=== PATIENT | female | born 1950 | race Caucasian/White ===

== ENCOUNTER 2016-06-08 02:11 | Inpatient (IN) | payer MEDICARE ==
[~2016-06-08] VITALS: Ht 170.2 cm; Wt 72.0 kg
[~2016-06-08 02:11] MED LIST: ADVI200T16; CALC500 PO; CENTTAB9 PO; FAMO20 PO; HYDR-3533 PO; LEXA10TA PO; LOPE2 PO; MELA3TAB14; TUMS500C CHEW
[2016-06-08 02:13] VITALS: BP 144/80; PULSE 108; RESP 18; TEMP 98.7; O2SAT 99
[2016-06-08] MEDS ORDERED: ADVI200C PO (02:25)
[2016-06-08] MEDS ORDERED: MELA1TAB18 PO (02:25)
[2016-06-08] MEDS ORDERED: ESCI20TA PO (02:25)
[2016-06-08] MEDS ORDERED: OSCA200T PO (02:25)
[2016-06-08] MEDS ORDERED: LORazepam 2 MG/ML VIAL IVS ONE (02:45)
[2016-06-08] MEDS ORDERED: SODIUM CHLORIDE 0.9% FLUSH 10 ML FLUSH IVF PRN (02:45)
[2016-06-08] MEDS ORDERED: SODIUM CHLOR 0.9% 1000 ML INJ 1,000 ML IV ONE (02:45)
[2016-06-08 02:53] VITALS: RESP 18; O2SAT 98
[2016-06-08 02:59] LABS: AUTOMATED NEUTROPHIL # 6.1 TH/MM3 (1.8-7.7); BASOPHIL % 0.6 % (0.0-2.0); EOSINOPHIL % 0.4 % (0.0-4.0); HEMATOCRIT 37.2 % (35.0-46.0); HEMO FLAGS DIFF FINAL; LYMPH % 10.2 % (9.0-44.0); LYMPHOCYTE # 0.8 TH/MM3 (1.0-4.8); MEAN CELL VOLUME 93.5 FL (80.0-100.0); MEAN CORPUSCULAR HEMOGLOBIN 31.9 PG (27.0-34.0); MEAN CORPUSCULAR HGB CONC 34.1 % (32.0-36.0); MONO % 7.7 % (0.0-8.0); NEUT % 81.1 % (16.0-70.0); PLATELET COUNT 221 TH/MM3 (150-450); RED BLOOD COUNT 3.98 MIL/MM3 (4.00-5.30); RED CELL DISTRIBUTION WIDTH 13.5 % (11.6-17.2); WHITE BLOOD COUNT 7.5 TH/MM3 (4.0-11.0)
[2016-06-08 03:32] LABS: AMPHETAMINE, URINE NEG (NEG); BARBITURATES, URINE NEG (NEG); COCAINE, URINE NEG (NEG)
--- NOTE | 2016-06-08 03:34 | PD ---
HPI Chief Complaint: Seizure Time Seen by Provider: 02:27 Travel History International Travel<30 days: No Contact w/Intl Traveler<30days: No Traveled to known affect area: No History of Present Illness HPI 65-year-old female brought in by ambulance from home after apparent seizure- like activity. According to the who witnessed the event, the patient was staring off in the distance, then had general shaking, then was talking and not making any sense. When EMS arrived the patient was very combative and appeared to be postictal. Upon arrival to the emergency department the patient is more cooperative. She is denying any physical complaints. No fevers, chills , cough, or recent illness. No history of seizure disorder. She is being evaluated by a neurologist for insomnia/poor sleep. She admits to drinking about 10-12 beers per day, however the last 2 days she only had 1 beer daily because she is trying to cut back. PFSH Past Medical History Hx Anticoagulant Therapy: Yes (ASPRIN ) Past Surgical History Hysterectomy: Yes Joint Replacement: Yes (HIP REPLACEMENT. AND SHOULDER ) Other Surgery: Yes (LUMPECTOMY ) Social History Alcohol Use: Yes (2-3 BEERS A DAY ) Tobacco Use: No Substance Use: No Allergies-Medications (Allergen,Severity, Reaction): Coded Allergies: Benja (Verified Allergy, Unknown, 09/17/15) Reported Meds & Prescriptions Reported Meds & Active Scripts Active Reported Melatonin 10 Mg Tab 10 Mg PO HS PRN Advil Pm (Ibuprofen-Diphenhydramine) 200-25 Mg Cap 1 Cap PO HS PRN Oscal 500/200 D-3 (Calcium Carbonate-Vitamin D) 500-200 Mg-Unit Tab 1 Tab PO BID Escitalopram (Escitalopram Oxalate) 20 Mg Tab 20 Mg PO DAILY Review of Systems Except as stated in HPI: all other systems reviewed are Neg Physical Exam Narrative GENERAL: Well-developed, well-nourished, awake, alert, no acute distress. Slightly tremulous. SKIN: Focused skin assessment warm/dry. No rash. No lacerations, abrasions, or ecchymosis. HEAD: Atraumatic. Normocephalic. EYES: Pupils equal and round. No scleral icterus. No injection or drainage. ENT: Mucous membranes pink and moist. NECK: Trachea midline. No JVD. No nuchal rigidity. CARDIOVASCULAR: Tachycardic, rate 105, regular. No murmur appreciated. RESPIRATORY: No accessory muscle use. Clear to auscultation. Breath sounds equal bilaterally. GASTROINTESTINAL: Abdomen soft, non-tender, nondistended. MUSCULOSKELETAL: No obvious deformities. No clubbing. No cyanosis. No edema. NEUROLOGICAL: Awake and alert. No obvious cranial nerve deficits. Motor grossly within normal limits. Normal speech. PSYCHIATRIC: Flat affect. Poor eye contact. Data Data Last Documented VS Vital Signs Date Time Temp Pulse Resp B/P Pulse Ox O2 Delivery O2 Flow Rate FiO2 06/08/16 02:53 18 98 06/08/16 02:15 Room Air 06/08/16 02:13 98.7 108 144/80 Orders Complete Blood Count With Diff (06/08/16 02:32) Alcohol (Ethanol) (06/08/16 02:32) Drug Screen, Random Urine (06/08/16 02:32) Electrocardiogram (06/08/16 ) Blood Glucose (06/08/16 02:32) Ecg Monitoring (06/08/16 02:32) Iv Access Insert/Monitor (06/08/16 02:32) Oximetry (06/08/16 02:32) Comprehensive Metabolic Panel (06/08/16 02:32) Sodium Chloride 0.9% Flush (Ns Flush) (06/08/16 02:45) Lorazepam Inj (Ativan Inj) (06/08/16 02:45) Ct Brain W/O Iv Contrast(Rout) (06/08/16 ) Sodium Chlor 0.9% 1000 Ml Inj (Ns 1000 M (06/08/16 02:45) Potassium Chloride (Kcl) (06/08/16 04:15) ^ Seizure Precautions (06/08/16 05:35) Admit To Inpatient (06/08/16 ) Vital Signs (Adult) Q4H (06/08/16 05:35) Bedside Glucose DOTTIE.AC&HS (06/08/16 05:35) Intake + Output DOTTIE.QSHIFT (06/08/16 05:35) Alcohol Withdrawal Asmt-Ciwa Q4HX18 (06/08/16 05:35) ^ Seizure Precautions (06/08/16 05:35) Multivitamin Inj (Mvi-12 Inj)... (06/08/16 05:45) Thiamine Inj (Thiamine Inj) (06/08/16 05:45) Thiamine (Vit B1) (Vitamin B1) (06/11/16 09:00) Consult Cm-Etoh Abuse Dc Plan (06/08/16 ) Flumazenil Inj (Romazicon Inj) (06/08/16 05:45) Lorazepam (Ativan) (06/08/16 05:45) Lorazepam Inj (Ativan Inj) (06/08/16 05:45) Lorazepam (Ativan) (06/08/16 05:45) Lorazepam Inj (Ativan Inj) (06/08/16 05:45) Lorazepam Inj (Ativan Inj) (06/08/16 05:45) Lorazepam Inj (Ativan Inj) (06/08/16 05:45) Haloperidol Inj (Haldol Inj) (06/08/16 05:45) Inpatient Certification (06/08/16 ) Vital Signs (Adult) Q4H (06/08/16 05:35) Activity Oob With Assistance (06/08/16 05:35) Manifold Operator / Telemetry .CONTINUOUS (06/08/16 05:35) Intake + Output DOTTIE.QSHIFT (06/08/16 05:35) Diet Regular Basic (06/08/16 Breakfast) Sodium Chloride 0.9% Flush (Ns Flush) (06/08/16 05:45) Sodium Chloride 0.9% Flush (Ns Flush) (06/08/16 09:00) Ondansetron Inj (Zofran Inj) (06/08/16 05:45) Bisacodyl Supp (Dulcolax Supp) (06/08/16 05:45) Comprehensive Metabolic Panel (06/09/16 06:00) Complete Blood Count With Diff (06/09/16 06:00) Scd Bilateral/Knee High DOTTIE.BID (06/08/16 05:35) Pawel Bilateral/Knee High DOTTIE.QSHIFT (06/08/16 05:35) Acetaminophen (Tylenol) (06/08/16 05:45) Labs Laboratory Tests Test 06/08/16 06/08/16 02:45 02:50 White Blood Count 7.5 TH/MM3 Red Blood Count 3.98 MIL/MM3 Hemoglobin 12.7 GM/DL Hematocrit 37.2 % Mean Corpuscular Volume 93.5 FL Mean Corpuscular Hemoglobin 31.9 PG Mean Corpuscular Hemoglobin 34.1 % Concent Red Cell Distribution Width 13.5 % Platelet Count 221 TH/MM3 Mean Platelet Volume 7.6 FL Neutrophils (%) (Auto) 81.1 % Lymphocytes (%) (Auto) 10.2 % Monocytes (%) (Auto) 7.7 % Eosinophils (%) (Auto) 0.4 % Basophils (%) (Auto) 0.6 % Neutrophils # (Auto) 6.1 TH/MM3 Lymphocytes # (Auto) 0.8 TH/MM3 Monocytes # (Auto) 0.6 TH/MM3 Eosinophils # (Auto) 0.0 TH/MM3 Basophils # (Auto) 0.0 TH/MM3 CBC Comment DIFF FINAL Differential Comment Sodium Level 130 MEQ/L Potassium Level 3.1 MEQ/L Chloride Level 94 MEQ/L Carbon Dioxide Level 23.3 MEQ/L Anion Gap 13 MEQ/L Blood Urea Nitrogen 8 MG/DL Creatinine 0.96 MG/DL Estimat Glomerular Filtration 58 ML/MIN Rate Random Glucose 186 MG/DL Calcium Level 8.6 MG/DL Total Bilirubin 0.7 MG/DL Aspartate Amino Transf 119 U/L (AST/SGOT) Alanine Aminotransferase 57 U/L (ALT/SGPT) Alkaline Phosphatase 102 U/L Total Protein 7.0 GM/DL Albumin 3.6 GM/DL Ethyl Alcohol Level LESS THAN 3 MG/DL Urine Opiates Screen NEG Urine Barbiturates Screen NEG Urine Amphetamines Screen NEG Urine Benzodiazepines Screen NEG Urine Cocaine Screen NEG Urine Cannabinoids Screen NEG MDM Medical Decision Making Medical Screen Exam Complete: Yes Emergency Medical Condition: Yes Differential Diagnosis Seizure, alcohol withdrawal seizure, metabolic abnormality, intracranial abnormality Narrative Course Initial vital signs show heart rate 108, blood pressure 144/80, pulse ox 99% on room air, oral temp of 98.7F. CBC is unremarkable. CMP is remarkable for sodium 1:30, potassium 3.1, chloride 94, random glucose 186, AST 119, ALT 57. Urine drug screen is negative. Alcohol level is negative. CT head shows no evidence of acute intracranial pathology. No masses are identified. The patient was given a dose of Ativan and is no longer tremulous. She has no history of seizures. Sounds like she may have had an alcohol withdrawal seizure. The patient drinks a significant amount of beer daily drinking between 10-12 beers daily, however. Last 2 days has only drank one beer a day in an attempt to quit drinking. She'll be admitted for further treatment and evaluation. Case discussed with hospitalist Dr. Gaitan who will admit the patient to her service. Diagnosis Primary Impression: Alcohol withdrawal seizure Qualified Code: F10.230 - Alcohol withdrawal seizure, uncomplicated Admitting Information Admitting Physician Requests: Admit Kenyon Astorga MD Jun 08, 2016 03:34
[2016-06-08 03:42] LABS: ALKALINE PHOSPHATASE 102 U/L (45-117); TOTAL BILIRUBIN ADULT 0.7 MG/DL (0.2-1.0)
[2016-06-08 03:50] LABS: ALT (GPT) 57 U/L (10-53); ANION GAP 13 MEQ/L (5-15); AST (GOT) 119 U/L (15-37); BICARBONATE 23.3 MEQ/L (21.0-32.0); BLOOD UREA NITROGEN 8 MG/DL (7-18); CHLORIDE 94 MEQ/L (98-107); GLOMERULAR FILTRATION RATE 58 ML/MIN (>89); POTASSIUM 3.1 MEQ/L (3.5-5.1); SODIUM (NA) 130 MEQ/L (136-145)
[2016-06-08] MEDS ORDERED: POTASSIUM CHLORIDE 20 MEQ CONTROLLED RELEASE TAB PO ONE (04:15)
--- NOTE | 2016-06-08 04:41 | RADRPT ---
EXAM DATE/TIME: 06/08/2016 03:40 [facility] COMPARISON: CT BRAIN W/O CONTRAST, September 17, 2015, 17:54. INDICATIONS : Altered mental status. Seizure today. RADIATION DOSE: 38.79 CTDIvol (mGy) MEDICAL HISTORY : Seizures. SURGICAL HISTORY : Hysterectomy. Lumpectomy. ENCOUNTER: Initial ACUITY: 1 day PAIN SCALE: 0/10 LOCATION: cranial TECHNIQUE: Multiple contiguous axial images were obtained of the head. Using automated exposure control and adj ustment of the mA and/or kV according to patient size, radiation dose was kept as low as reasonably a chievable to obtain optimal diagnostic quality images. FINDINGS: CEREBRUM: The ventricles are normal for age. No evidence of midline shift, mass lesion, hemorrhage or acute in farction. No extra-axial fluid collections are seen. POSTERIOR FOSSA: The cerebellum and brainstem are intact. The 4th ventricle is midline. The cerebellopontine angle i s unremarkable. EXTRACRANIAL: The visualized portion of the orbits is intact. SKULL: The calvaria is intact. No evidence of skull fracture. CONCLUSION: 1. No evidence of acute intracranial pathology. No masses are identified. Xu Ryan MD on June 08, 2016 at 4:39 Board Certified Radiologist. This report was verified electronically.
[2016-06-08] MEDS ORDERED: LORazepam 2 MG/ML VIAL IV PUSH PRN ×4 (05:45)
[2016-06-08] MEDS ORDERED: HALOPERIDOL LACTATE 5 MG/ML AMP IM PRN (05:45)
[2016-06-08] MEDS ORDERED: SODIUM CHLORIDE 0.9% FLUSH 10 ML FLUSH IV FLUSH PRN (05:45)
[2016-06-08] MEDS ORDERED: FLUMAZENIL 0.5 MG/5 ML VIAL IV PUSH PRN (05:45)
[2016-06-08] MEDS ORDERED: ACETAMINOPHEN 325 MG TAB PO PRN (05:45)
[2016-06-08] MEDS ORDERED: ONDANSETRON HCL 4 MG/2 ML VIAL IVP PRN (05:45)
[2016-06-08] MEDS ORDERED: BISACODYL 10 MG SUPP RECTAL PRN (05:45)
[2016-06-08] MEDS ORDERED: LORazepam 2 MG TAB PO PRN (05:45)
[2016-06-08] MEDS ORDERED: LORazepam 1 MG TAB PO PRN (05:45)
[2016-06-08 08:36] VITALS: BP_SYST 157; BP_SYST 85; BP_DIAS 56; BP_DIAS 98; PULSE 112; PULSE 89; RESP 20; TEMP 97.7; TEMP 98; O2SAT 95
[2016-06-08] MEDS: THIAMINE INJ 100 MG in SODIUM CHLORIDE 0.9% INJ 100 ML IV SCH (10:16)
[2016-06-08] MEDS: MULTIVITAMIN INJ 10 ML, FOLIC ACID INJ 1 MG in SODIUM CHLORID 0.9% 500 ML INJ 500 ML IV SCH (10:16)
[2016-06-08] MEDS: SODIUM CHLORIDE 0.9% FLUSH 10 ML FLUSH IV FLUSH SCH ×2 (10:17→22:36)
--- NOTE | 2016-06-08 12:13 | PD.CONS ---
History of Present Illness Service Neurology Consult Requested By med/er Reason for Consult sz Primary Care Physician Jonny Honeycutt M.D. History of Present Illness 65-year-old female brought in by ambulance from home after apparent seizure- like activity. Normal day for her, in the evening she became confused and started shaking; showed me a couple of small bruises on her legs from incident. spouse not available at present. Left message on phone. PT does not remember what happened. When EMS arrived the patient was very combative and appeared to be postictal. Upon arrival to the emergency department the patient is more cooperative. She is denying any physical complaints. No fevers, chills, cough , or recent illness. she states she has 3-4 etoh drinks and denies any abrupt cessation to me this am. has had recurrent spells ongoing over past year and memory changes. PFSH Past Medical History Hx Anticoagulant Therapy: Yes (ASPRIN ) Past Surgical History Hysterectomy: Yes Joint Replacement: Yes (HIP REPLACEMENT. AND SHOULDER ) Other Surgery: Yes (LUMPECTOMY ) Social History Alcohol Use: Yes (2-3 BEERS A DAY ) Tobacco Use: No Substance Use: No Allergies-Medications (Allergen,Severity, Reaction): Coded Allergies: Benja (Verified Allergy, Unknown, 09/17/15) Reported Meds & Prescriptions Reported Meds & Active Scripts Active Reported Melatonin 10 Mg Tab 10 Mg PO HS PRN Advil Pm (Ibuprofen-Diphenhydramine) 200-25 Mg Cap 1 Cap PO HS PRN Oscal 500/200 D-3 (Calcium Carbonate-Vitamin D) 500-200 Mg-Unit Tab 1 Tab PO BID Escitalopram (Escitalopram Oxalate) 20 Mg Tab 20 Mg PO DAILY Review of Systems Except as stated in HPI: all other systems reviewed are Neg Review of Systems All other ROS: ROS reviewed as documented in chart Past Family Social History Allergies: Coded Allergies: Benja (Verified Allergy, Unknown, 09/17/15) Active Ordered Medications Current Medications Medications (Trade) Dose Ordered Sig/Sterling Route Start Time Stop Time Status Last Admin Multivitamins 10 ml/Folic Acid 1 mg/Sodium Chloride 510.2 ml @ 125 mls/hr Q24H IV 06/08/16 08:00 06/13/16 07:59 06/08/16 10:16 (Thiamine Inj/NS Inj) 101 ml @ 100 mls/hr Q24H IV 06/08/16 09:00 06/11/16 08:59 06/08/16 10:16 (Vitamin B1) 100 mg DAILY PO 06/11/16 09:00 (Romazicon Inj) 0.2 mg Q1M PRN IV PUSH 06/08/16 05:45 (Ativan) 1 mg Q4H PRN PO 06/08/16 05:45 (Ativan Inj) 1 mg Q4H PRN IV PUSH 06/08/16 05:45 (Ativan) 2 mg Q2H PRN PO 06/08/16 05:45 (Ativan Inj) 2 mg Q2H PRN IV PUSH 06/08/16 05:45 (Ativan Inj) 2 mg Q1H PRN IV PUSH 06/08/16 05:45 (Ativan Inj) 2 mg Q15M PRN IV PUSH 06/08/16 05:45 (Haldol Inj) 2 mg Q15M PRN IM 06/08/16 05:45 (NS Flush) 2 ml UNSCH PRN IV FLUSH 06/08/16 05:45 (NS Flush) 2 ml BID IV FLUSH 06/08/16 09:00 06/08/16 10:17 (Zofran Inj) 4 mg Q6H PRN IVP 06/08/16 05:45 (Dulcolax Supp) 10 mg DAILY PRN RECTAL 06/08/16 05:45 (Tylenol) 650 mg Q6H PRN PO 06/08/16 05:45 (Lexapro) 20 mg DAILY PO 06/09/16 09:00 Exam I&O / VS Vital Signs Date Time Temp Pulse Resp B/P Pulse Ox O2 Delivery O2 Flow Rate FiO2 06/08/16 08:36 97.7 89 20 157/98 95 06/08/16 02:53 18 98 06/08/16 02:15 98 Room Air 06/08/16 02:13 98.7 108 18 144/80 99 General: Alert and Oriented, No acute distress Respiratory: Non-labored respirations Cardiology: Normal rate Musculoskeletal: ROM Neurologic: Alert, Oriented, Normal sensory, Normal motor, No focal defects, CN II-XII intact, Gag reflex normal, Normal DTR's Psychiatric: Cooperative, Appropriate mood & affect, Normal judgement, Non- suicidal Review/Management Diagnosis/Plan: (1) Seizure cerebral Plan: unclear if 2/2 etoh cessation; she denies this has had spells before that were not associated with etoh withdrawal frm what i recollect recs eeg mri/mra brain will start keppra for now; i can't remember if we started her on sz meds in the office; spouse not aa limiting/abstaining from etoh d/w pt d/c planning in am no driving/climbing heights/operating dangerous materials (2) ETOHism (3) Insomnia Problem Qualifiers (1) Insomnia: Qualified Code: G47.00 - Insomnia, unspecified type Adarsh Ortega MD Jun 08, 2016 12:13
[2016-06-08 12:35] VITALS: BP 155/74; PULSE 77; RESP 20; TEMP 96.8; O2SAT 94
--- NOTE | 2016-06-08 13:41 | HHI.HP ---
[facility] Jonny Honeycutt M.D. Admission Diagnosis alcohol withdrawal seizure, hypokalemia Diagnoses: Chief Complaint: seizure Travel History International Travel<30 Days: No Contact w/Intl Traveler <30 Da: No Traveled to Known Affected Are: No History of Present Illness 65-year-old female with history of anxiety and alcohol abuse presents via EVAC with seizure activity on 06/07/16. The patient does not recall all the events leading up to her admission. She states she normally drinks 2-4 beers a day, sometimes up to 8-10 beers/day however has been trying to cut back and only drank 2 beers/day over the past 2 days. She states she's cutting back because she was getting worried about her weight gain and also her has been wanting her to quit. Per ER report, the patient's noticed her to be staring off into the distance, speaking but not making any sense, then had generalized shaking and flailing in bed. The called 911 and upon EMS arrival, the patient was noted to be very combative and postictal. She did bite the left side of her tongue, but denies any urinary/bowel incontinence. Denies any recent headache, neck pain, fevers/chills, cough, chest pain, palpitations or shortness of breath. She did have some nausea and vomiting 2 nights ago but denies any abdominal pain or diarrhea. The patient has been seeing neurologist Dr. Ortega as outpatient for insomnia. The patient reports multiple recent falls and seizures. She states she's probably had 5 seizure episodes her entire life, last episode 1 year ago. She also reports recent multiple falls where she just all of a sudden loses her balance, most recently in Feb and April of this year. She is now seen after being admitted to the hospital, she reports some tremors but no further seizure activity. She is interested in complete alcohol cessation but states she does like the taste of beer so she may be able to only drink nonalcoholic beer. She has a very supportive who wants her to quit. She has no other medical complaints at this time. Review of Systems Except as stated in HPI: all other systems reviewed are Neg Past Family Social History Past Medical History Insomnia Anxiety Past Surgical History Hysterectomy Bilateral total hip arthroplasty Right shoulder replacement Lumpectomy Cataract surgery Reported Medications Melatonin 10 Mg Tab 10 Mg PO HS PRN Advil Pm (Ibuprofen-Diphenhydramine) 200-25 Mg Cap 1 Cap PO HS PRN Oscal 500/200 D-3 (Calcium Carbonate-Vitamin D) 500-200 Mg-Unit Tab 1 Tab PO BID Escitalopram (Escitalopram Oxalate) 20 Mg Tab 20 Mg PO DAILY Allergies: Coded Allergies: Benja (Verified Allergy, Unknown, 09/17/15) Active Ordered Medications Current Medications Medications (Trade) Dose Ordered Sig/Sterling Route Start Time Stop Time Status Last Admin Multivitamins 10 ml/Folic Acid 1 mg/Sodium Chloride 510.2 ml @ 125 mls/hr Q24H IV 06/08/16 08:00 06/13/16 07:59 06/08/16 10:16 (Thiamine Inj/NS Inj) 101 ml @ 100 mls/hr Q24H IV 06/08/16 09:00 06/11/16 08:59 06/08/16 10:16 (Vitamin B1) 100 mg DAILY PO 06/11/16 09:00 (Romazicon Inj) 0.2 mg Q1M PRN IV PUSH 06/08/16 05:45 (Ativan) 1 mg Q4H PRN PO 06/08/16 05:45 (Ativan Inj) 1 mg Q4H PRN IV PUSH 06/08/16 05:45 (Ativan) 2 mg Q2H PRN PO 06/08/16 05:45 (Ativan Inj) 2 mg Q2H PRN IV PUSH 06/08/16 05:45 (Ativan Inj) 2 mg Q1H PRN IV PUSH 06/08/16 05:45 (Ativan Inj) 2 mg Q15M PRN IV PUSH 06/08/16 05:45 (Haldol Inj) 2 mg Q15M PRN IM 06/08/16 05:45 (NS Flush) 2 ml UNSCH PRN IV FLUSH 06/08/16 05:45 (NS Flush) 2 ml BID IV FLUSH 06/08/16 09:00 06/08/16 10:17 (Zofran Inj) 4 mg Q6H PRN IVP 06/08/16 05:45 (Dulcolax Supp) 10 mg DAILY PRN RECTAL 06/08/16 05:45 (Tylenol) 650 mg Q6H PRN PO 06/08/16 05:45 (Lexapro) 20 mg DAILY PO 06/09/16 09:00 Family History Mother with history of seizures Denies any family history of brain masses/cancer Social History Very remote tobacco use many years ago, none recent Drinks alcohol, normally anywhere from 2-10 beers/day, now cut back to 2 beers/ day Denies any illicit drug use Lives with her Physical Exam Vital Signs Vital Signs Date Time Temp Pulse Resp B/P Pulse Ox O2 Delivery O2 Flow Rate FiO2 06/08/16 12:35 96.8 77 20 155/74 94 06/08/16 08:36 97.7 89 20 157/98 95 06/08/16 02:53 18 98 06/08/16 02:15 98 Room Air 06/08/16 02:13 98.7 108 18 144/80 99 Physical Exam GENERAL: Well-developed, well-nourished middle aged female patient in [facility]. Mildly tremulous. SKIN: Warm and dry. HEAD: Atraumatic. Normocephalic. EYES: Pupils equal and round. No scleral icterus. No injection or drainage. ENT: No nasal bleeding or discharge. Mucous membranes pink and moist. NECK: Trachea midline. CARDIOVASCULAR: Regular rate and rhythm. No murmur appreciated. RESPIRATORY: No accessory muscle use. Clear to auscultation. Breath sounds equal bilaterally. GASTROINTESTINAL: Abdomen soft, non-tender, nondistended. Hepatic and splenic margins not palpable. MUSCULOSKELETAL: Extremities without clubbing, cyanosis, or edema. No obvious deformities. NEUROLOGICAL: Awake and alert. No obvious cranial nerve deficits. Motor grossly within normal limits. 5/5 muscle strength in the arms and legs. Normal speech. PSYCHIATRIC: Appropriate mood and affect; insight and judgment normal. Laboratory Laboratory Tests Test 06/08/16 06/08/16 02:45 02:50 White Blood Count 7.5 Red Blood Count 3.98 Hemoglobin 12.7 Hematocrit 37.2 Mean Corpuscular Volume 93.5 Mean Corpuscular Hemoglobin 31.9 Mean Corpuscular Hemoglobin 34.1 Concent Red Cell Distribution Width 13.5 Platelet Count 221 Mean Platelet Volume 7.6 Neutrophils (%) (Auto) 81.1 Lymphocytes (%) (Auto) 10.2 Monocytes (%) (Auto) 7.7 Eosinophils (%) (Auto) 0.4 Basophils (%) (Auto) 0.6 Neutrophils # (Auto) 6.1 Lymphocytes # (Auto) 0.8 Monocytes # (Auto) 0.6 Eosinophils # (Auto) 0.0 Basophils # (Auto) 0.0 CBC Comment DIFF FINAL Differential Comment Sodium Level 130 Potassium Level 3.1 Chloride Level 94 Carbon Dioxide Level 23.3 Anion Gap 13 Blood Urea Nitrogen 8 Creatinine 0.96 Estimat Glomerular Filtration 58 Rate Random Glucose 186 Calcium Level 8.6 Total Bilirubin 0.7 Aspartate Amino Transf 119 (AST/SGOT) Alanine Aminotransferase 57 (ALT/SGPT) Alkaline Phosphatase 102 Total Protein 7.0 Albumin 3.6 Ethyl Alcohol Level LESS THAN 3 Urine Opiates Screen NEG Urine Barbiturates Screen NEG Urine Amphetamines Screen NEG Urine Benzodiazepines Screen NEG Urine Cocaine Screen NEG Urine Cannabinoids Screen NEG Result Diagram: 06/08/16 0245 06/08/16 0245 Imaging Last Impressions Head CT 06/08/16 0000 Signed Impressions: Service Date/Time: Wednesday, June 08, 2016 03:40 - CONCLUSION: 1. No evidence of acute intracranial pathology. No masses are identified. Xu Ryan MD Assessment and Plan Assessment and Plan 65-year-old female with history of anxiety and alcohol abuse presents via EVAC with seizure activity on 06/07/16. Seizure: suspect alcohol withdrawal seizure, recently cut back from 8-10 beers/ day to 2 beers/day. Head CT images reviewed, unremarkable. UDS negative and etoh level 3. Correct electrolytes. Consult neurology, started on Keppra 500mg po bid. Check EEG, MRI/MRA brain, ESR, TSH, vit B12, ammonia. Seizure precautions. Ativan prn seizure. Alcohol Abuse with Acute Alcohol Withdrawal: Continue thiamine/folate/MV. CIWA protocol. Extensively counseled on alcohol cessation. Start Librium 10mg tid. Seizure precautions. Hyponatremia: likely beer potomania with dehydration. Na 130. S/p IVF bolus in ER. Repeat BMP in am. Hypokalemia: likely secondary to poor oral intake and recent vomiting. K 3.1. Given KCl replacement. Recheck BMP in am, replace as needed. Elevated Blood Glucose: random glucose 186, no hx of diabetes. Check HgbA1c. Transaminitis: AST 119, ALT 57. Likely secondary to chronic alcohol abuse. Recommended alcohol cessation. Outpatient f/up with GI. Anxiety: chronic, continue patient's Lexapro. DVT Prophylaxis: SCDs Written by Salma Martínez, acting as scribe for Dr. Bailon on 06/08/16 at 13: 45. This note was transcribed by scribe. I, Dr. Katharine Bailon personally performed the history, physical exam, and medical decision making; and confirmed the accuracy of the information in the transcribed note. Authenticated by Dr. Katharine Bailon on 06/08/16 at 16:25. Discussed Condition With Patient Physician Certification 2 Midnight Certification Type: Admission for Inpatient Services Order for Inpatient Services The services are ordered in accordance with Medicare regulations or non- Medicare payer requirements, as applicable. In the case of services not specified as inpatient-only, they are appropriately provided as inpatient services in accordance with the 2-midnight benchmark. Estimated LOS (days): 2 days is the estimated time the patient will need to remain in the hospital, assuming treatment plan goals are met and no additional complications. Post-Hospital Plan: Home Salma Martínez PA-C Jun 08, 2016 13:41 Katharine Bailon MD Jun 08, 2016 16:25
--- NOTE | 2016-06-08 14:03 | EKG ---
Date Performed: 06/08/2016 Time Performed: 02:45:51 PTAGE: 65 years EKG: Sinus rhythm WITH FREQUENT VENTRICULAR PREMATURE COMPLEXES POSSIBLE RIGHT VENTRICULAR CONDUCTION DELAY NONSPECIFI C ST & T-WAVE ABNORMALITY ABNORMAL RHYTHM ECG NO PREVIOUS TRACING DOCTOR: Jean-Pierre Dickerson Interpretating Date/Time 06/08/2016 14:01:06
[2016-06-08 14:37] LABS: AUTOMATED NEUTROPHIL # 3.4 TH/MM3 (1.8-7.7); BASOPHIL % 0.7 % (0.0-2.0); EOSINOPHIL % 0.6 % (0.0-4.0); HEMATOCRIT 34.1 % (35.0-46.0); HEMO FLAGS DIFF FINAL; LYMPH % 16.6 % (9.0-44.0); LYMPHOCYTE # 0.8 TH/MM3 (1.0-4.8); MEAN CELL VOLUME 93.7 FL (80.0-100.0); MEAN CORPUSCULAR HEMOGLOBIN 31.4 PG (27.0-34.0); MEAN CORPUSCULAR HGB CONC 33.5 % (32.0-36.0); MONO % 11.2 % (0.0-8.0); NEUT % 70.9 % (16.0-70.0); PLATELET COUNT 206 TH/MM3 (150-450); RED BLOOD COUNT 3.64 MIL/MM3 (4.00-5.30); RED CELL DISTRIBUTION WIDTH 13.6 % (11.6-17.2); WHITE BLOOD COUNT 4.8 TH/MM3 (4.0-11.0)
[2016-06-08 15:10] LABS: BICARBONATE 26.5 MEQ/L (21.0-32.0); POTASSIUM 3.3 MEQ/L (3.5-5.1)
--- NOTE | 2016-06-08 15:45 | RADRPT ---
EXAM DATE/TIME: 06/08/2016 15:05 [facility] COMPARISON: No previous studies available for comparison. INDICATIONS : Epilepsy. MEDICAL HISTORY : Carcinoma, breast. SURGICAL HISTORY : Appendectomy. Hysterectomy. Bilateral hip replacements. Right shoulder replacement. ENCOUNTER: Initial ACUITY: 1 day PAIN SCORE: 0/10 LOCATION: cranial TECHNIQUE: Multiplanar, multisequence MRI of the brain was performed without contrast. FINDINGS: CEREBRUM: The ventricles are normal for age. No evidence of midline shift, mass lesion, hemorrhage or acute in farction. No extraaxial fluid collections are seen. The pituitary gland and suprasellar cistern are normal in configuration. WHITE MATTER: No significant signal abnormalities are seen in the white matter. POSTERIOR FOSSA: The cerebellum and brainstem are intact. The 4th ventricle is midline. The cerebellopontine angle is unremarkable. The cerebellar tonsils are normal in position. DIFFUSION IMAGING: No focal areas of restricted diffusion are seen. No evidence of acute infarction. EXTRACRANIAL: The visualized portions of the orbits and paranasal sinuses are unremarkable. CONCLUSION: Normal examination for a patient of this age. Kenan Salmeron MD on June 08, 2016 at 15:41 Board Certified Radiologist. This report was verified electronically.
--- NOTE | 2016-06-08 15:48 | RADRPT ---
EXAM DATE/TIME: 06/08/2016 15:05 [facility] COMPARISON: No previous studies available for comparison. INDICATIONS : Epilepsy. MEDICAL HISTORY : Carcinoma, breast. SURGICAL HISTORY : Appendectomy. Hysterectomy. Bilateral hip replacements. Right shoulder replacement. ENCOUNTER: Initial ACUITY: 1 day PAIN SCORE: 0/10 LOCATION: cranial Please note a normal MRA of the brain does not entirely exclude the possibility of a small aneurysm, nor the possibility of distal intracranial vessel disease. TECHNIQUE: 3D time of flight MRA was performed. Source images, multiplanar STS MIP, and 3D volume MIP reconstru ctions were reviewed. FINDINGS: There is excellent visualization of the major intracranial arteries out to the second-order branch ve ssels. There is no evidence for aneurysm, vessel truncation or stenosis, and no evidence for vascula r malformation. CONCLUSION: Normal examination for a patient of this age. Kenan Salmeron MD on June 08, 2016 at 15:43 Board Certified Radiologist. This report was verified electronically.
[2016-06-08 17:30] VITALS: BP 143/71; PULSE 72; RESP 20; TEMP 98.5; O2SAT 97
[2016-06-08 20:00] VITALS: BP 148/82; PULSE 76; RESP 18; TEMP 98; O2SAT 98
[2016-06-08] MEDS ORDERED: ZOLPIDEM TARTRATE 5 MG TAB PO PRN (23:30)
[2016-06-09 00:53] VITALS: BP 134/70; PULSE 75; RESP 16; TEMP 98.2; O2SAT 95
[2016-06-09 05:33] VITALS: BP 144/62; PULSE 73; RESP 18; TEMP 98.2; O2SAT 98
[2016-06-09 08:29] VITALS: BP 162/85; PULSE 74; RESP 18; TEMP 97.4; O2SAT 98
[2016-06-09 08:34] LABS: AUTOMATED NEUTROPHIL # 2.9 TH/MM3 (1.8-7.7); BASOPHIL % 0.5 % (0.0-2.0); EOSINOPHIL # 0.1 TH/MM3 (0-0.4); EOSINOPHIL % 2.5 % (0.0-4.0); HEMO FLAGS DIFF FINAL; LYMPH % 22.4 % (9.0-44.0); MEAN CELL VOLUME 93.6 FL (80.0-100.0); MEAN CORPUSCULAR HEMOGLOBIN 32.8 PG (27.0-34.0); MONO % 10.5 % (0.0-8.0); NEUT % 64.1 % (16.0-70.0); PLATELET COUNT 200 TH/MM3 (150-450); RED BLOOD COUNT 3.53 MIL/MM3 (4.00-5.30); RED CELL DISTRIBUTION WIDTH 13.6 % (11.6-17.2); WHITE BLOOD COUNT 4.5 TH/MM3 (4.0-11.0)
--- NOTE | 2016-06-09 08:58 | HHI.PR ---
Review/Management Diagnosis/Plan: (1) Seizure cerebral Plan: unclear if 2/2 etoh cessation; she denies this has had spells before that were not associated with etoh withdrawal frm what i recollect partner states pt was drinking 10+ beers past few days and cut down over the past 2-3 days. under a lot of stress 2/2 daughter recs eeg-pending mri/mra brain-negative will look at outpatient therapy limiting/abstaining from etoh d/w pt d/c planning today and f/u with me tomorrow can give script for librium/xanax for a few days prn no driving/climbing heights/operating dangerous materials (2) ETOHism (3) Insomnia Subjective Subjective Comments No acute events reported No headache No chest pain No dyspnea Active Medications Current Medications Medications (Trade) Dose Ordered Sig/Sterling Route Start Time Stop Time Status Last Admin Multivitamins 10 ml/Folic Acid 1 mg/Sodium Chloride 510.2 ml @ 125 mls/hr Q24H IV 06/08/16 08:00 06/13/16 07:59 06/08/16 10:16 (Thiamine Inj/NS Inj) 101 ml @ 100 mls/hr Q24H IV 06/08/16 09:00 06/11/16 08:59 06/08/16 10:16 (Vitamin B1) 100 mg DAILY PO 06/11/16 09:00 (Romazicon Inj) 0.2 mg Q1M PRN IV PUSH 06/08/16 05:45 (Ativan) 1 mg Q4H PRN PO 06/08/16 05:45 (Ativan Inj) 1 mg Q4H PRN IV PUSH 06/08/16 05:45 06/08/16 14:39 (Ativan) 2 mg Q2H PRN PO 06/08/16 05:45 (Ativan Inj) 2 mg Q2H PRN IV PUSH 06/08/16 05:45 (Ativan Inj) 2 mg Q1H PRN IV PUSH 06/08/16 05:45 (Ativan Inj) 2 mg Q15M PRN IV PUSH 06/08/16 05:45 (Haldol Inj) 2 mg Q15M PRN IM 06/08/16 05:45 (NS Flush) 2 ml UNSCH PRN IV FLUSH 06/08/16 05:45 (NS Flush) 2 ml BID IV FLUSH 06/08/16 09:00 06/08/16 22:36 (Zofran Inj) 4 mg Q6H PRN IVP 06/08/16 05:45 (Dulcolax Supp) 10 mg DAILY PRN RECTAL 06/08/16 05:45 (Tylenol) 650 mg Q6H PRN PO 06/08/16 05:45 (Lexapro) 20 mg DAILY PO 06/09/16 09:00 (Librium) 10 mg TID PO 06/08/16 18:00 06/08/16 17:03 (Ambien) 5 mg HS PRN PO 06/08/16 23:30 06/08/16 23:46 Allergies Allergies Coded Allergies Benja (Verified Allergy, Unknown, 09/17/15) Review of Systems All other ROS: ROS reviewed as documented in chart Exam I&O / VS 06/08/16 06/08/16 06/09/16 15:00 23:00 07:00 Intake Total 720 ml Balance 720 ml Intake Oral 720 ml # Voids 3 5 # Bowel Movements 1 Vital Signs Date Time Temp Pulse Resp B/P Pulse Ox O2 Delivery O2 Flow Rate FiO2 06/09/16 08:29 97.4 74 18 162/85 98 06/09/16 05:33 98.2 73 18 144/62 98 06/09/16 00:53 98.2 75 16 134/70 95 06/08/16 20:00 98.0 76 18 148/82 98 06/08/16 17:30 98.5 72 20 143/71 97 06/08/16 12:35 96.8 77 20 155/74 94 General: Alert and Oriented, No acute distress Respiratory: Non-labored respirations Cardiology: Normal rate Musculoskeletal: ROM Neurologic: Alert, Oriented, Normal sensory, Normal motor, No focal defects, CN II-XII intact, Gag reflex normal, Normal DTR's Psychiatric: Cooperative, Appropriate mood & affect, Normal judgement, Non- suicidal Objective Micro and Labs Laboratory Tests Test 06/08/16 06/09/16 14:12 07:51 White Blood Count 4.8 4.5 Red Blood Count 3.64 3.53 Hemoglobin 11.4 11.6 Hematocrit 34.1 33.0 Mean Corpuscular Volume 93.7 93.6 Mean Corpuscular Hemoglobin 31.4 32.8 Mean Corpuscular Hemoglobin 33.5 35.0 Concent Red Cell Distribution Width 13.6 13.6 Platelet Count 206 200 Mean Platelet Volume 7.6 7.7 Neutrophils (%) (Auto) 70.9 64.1 Lymphocytes (%) (Auto) 16.6 22.4 Monocytes (%) (Auto) 11.2 10.5 Eosinophils (%) (Auto) 0.6 2.5 Basophils (%) (Auto) 0.7 0.5 Neutrophils # (Auto) 3.4 2.9 Lymphocytes # (Auto) 0.8 1.0 Monocytes # (Auto) 0.5 0.5 Eosinophils # (Auto) 0.0 0.1 Basophils # (Auto) 0.0 0.0 CBC Comment DIFF FINAL DIFF FINAL Differential Comment Erythrocyte Sedimentation Rate 9 Sodium Level 136 Potassium Level 3.3 Chloride Level 102 Carbon Dioxide Level 26.5 Anion Gap 8 Blood Urea Nitrogen 4 Creatinine 0.65 Estimat Glomerular Filtration 91 Rate Random Glucose 116 Calcium Level 7.8 Ammonia 24 Vitamin B12 Level 643 Thyroid Stimulating Hormone 3.940 3rd Gen Problem Qualifiers (1) Insomnia: Qualified Code: G47.00 - Insomnia, unspecified type Adarsh Ortega MD Jun 09, 2016 08:58
[2016-06-09] MEDS: SODIUM CHLORIDE 0.9% FLUSH 10 ML FLUSH IV FLUSH SCH (09:00)
[2016-06-09] MEDS ORDERED: ESCITALOPRAM OXALATE 20 MG TAB PO SCH (09:00)
[2016-06-09 09:12] LABS: ALKALINE PHOSPHATASE 71 U/L (45-117); ALT (GPT) 44 U/L (10-53); ANION GAP 7 MEQ/L (5-15); AST (GOT) 69 U/L (15-37); BICARBONATE 28.1 MEQ/L (21.0-32.0); BLOOD UREA NITROGEN 4 MG/DL (7-18); CHLORIDE 101 MEQ/L (98-107); GLOMERULAR FILTRATION RATE 87 ML/MIN (>89); POTASSIUM 3.4 MEQ/L (3.5-5.1); SODIUM (NA) 136 MEQ/L (136-145); TOTAL BILIRUBIN ADULT 0.6 MG/DL (0.2-1.0)
[2016-06-09] MEDS: MULTIVITAMIN INJ 10 ML, FOLIC ACID INJ 1 MG in SODIUM CHLORID 0.9% 500 ML INJ 500 ML IV SCH (10:08)
[2016-06-09] MEDS: THIAMINE INJ 100 MG in SODIUM CHLORIDE 0.9% INJ 100 ML IV SCH (10:10)
[2016-06-09] MEDS ORDERED: VITA100T2 PO (10:23)
--- NOTE | 2016-06-09 10:23 | HHI.DCPOC ---
Discharge Care Plan Diagnosis: (1) Alcohol withdrawal seizure Goals to Promote Your Health * To prevent worsening of your condition and complications * To maintain your health at the optimal level Directions to Meet Your Goals Take your medications as prescribed Follow your dietary instruction Follow activity as directed Keep your appointments as scheduled Take your immunizations and boosters as scheduled If your symptoms worsen call your PCP, if no PCP go to Urgent Care Center or Emergency Room Smoking is Dangerous to Your Health. Avoid second hand smoke Call the 24-hour hour crisis hotline for domestic abuse at Salma Martínez PA-C Jun 09, 2016 10:23 am
[2016-06-09] MEDS ORDERED: LEVE500T8 PO (10:36)
[2016-06-09] MEDS ORDERED: POTASSIUM CHLORIDE 20 MEQ CONTROLLED RELEASE TAB PO ONE (11:00)
[2016-06-09 11:30] VITALS: BP 142/74; PULSE 71; RESP 18; TEMP 96.9; O2SAT 96
[2016-06-09] MEDS ORDERED: levETIRAcetam 500 MG TAB PO SCH (13:00)
--- NOTE | 2016-06-09 15:50 | HHI.PR ---
Subjective Remarks Follow up for seizure, alcohol withdrawal. The patient reports feeling better again today. No further seizure activity overnight. No significant tremors. Denies any medical complaints. Tolerating oral intake. Discussed extensively with the patient and her on speaker phone in the room, both verbalized understanding. She will start on Keppra 500mg po bid for seizure control and will be placed on Librium taper at discharged. The patient reports motivation to quit drinking alcohol altogether. Objective Vitals Vital Signs Date Time Temp Pulse Resp B/P Pulse Ox O2 Delivery O2 Flow Rate FiO2 06/09/16 11:30 96.9 71 18 142/74 96 06/09/16 08:29 97.4 74 18 162/85 98 06/09/16 05:33 98.2 73 18 144/62 98 06/09/16 00:53 98.2 75 16 134/70 95 06/08/16 20:00 98.0 76 18 148/82 98 06/08/16 17:30 98.5 72 20 143/71 97 I/O 06/08/16 06/08/16 06/08/16 06/09/16 06/09/16 06/09/16 07:00 15:00 23:00 07:00 15:00 23:00 Intake Total 720 ml Balance 720 ml Intake Oral 720 ml # Voids 3 5 # Bowel Movements 1 Result Diagram: 06/09/16 0751 06/09/16 0751 Imaging Last Impressions Head Magnetic Resonance Angiography 06/08/16 0000 Signed Impressions: Service Date/Time: Wednesday, June 08, 2016 15:05 - CONCLUSION: Normal examination for a patient of this age. Kenan Salmeron MD Head CT 06/08/16 0000 Signed Impressions: Service Date/Time: Wednesday, June 08, 2016 03:40 - CONCLUSION: 1. No evidence of acute intracranial pathology. No masses are identified. Xu Ryan MD Brain MRI 06/08/16 0000 Signed Impressions: Service Date/Time: Wednesday, June 08, 2016 15:05 - CONCLUSION: Normal examination for a patient of this age. Kenan Salmeron MD Objective Remarks GENERAL: Well-nourished, well-developed pleasant female patient in [facility]. SKIN: Warm and dry. No rash. HEENT: Normocephalic. Atraumatic.Pupils equal and round. Mucous membranes pink and moist. NECK: Supple. Trachea midline. CARDIOVASCULAR: Regular rate and rhythm. S1, S2 noted. No murmur appreciated. RESPIRATORY: No accessory muscle use. Clear to auscultation. Breath sounds equal bilaterally. GASTROINTESTINAL: Abdomen soft, non-tender, nondistended. Normoactive bowel sounds x4. MUSCULOSKELETAL: No obvious deformities. Extremities without clubbing, cyanosis , or edema. NEUROLOGICAL: Awake and alert. No obvious cranial nerve deficits. Motor grossly within normal limits. Normal speech. PSYCHIATRIC: Appropriate mood and affect; insight and judgment normal. Medications and IVs Current Medications Medications (Trade) Dose Ordered Sig/Sterling Route Start Time Stop Time Status Last Admin Multivitamins 10 ml/Folic Acid 1 mg/Sodium Chloride 510.2 ml @ 125 mls/hr Q24H IV 06/08/16 08:00 06/13/16 07:59 06/09/16 10:08 (Thiamine Inj/NS Inj) 101 ml @ 100 mls/hr Q24H IV 06/08/16 09:00 06/11/16 08:59 06/09/16 10:10 (Vitamin B1) 100 mg DAILY PO 06/11/16 09:00 (Romazicon Inj) 0.2 mg Q1M PRN IV PUSH 06/08/16 05:45 (Ativan) 1 mg Q4H PRN PO 06/08/16 05:45 (Ativan Inj) 1 mg Q4H PRN IV PUSH 06/08/16 05:45 06/08/16 14:39 (Ativan) 2 mg Q2H PRN PO 06/08/16 05:45 (Ativan Inj) 2 mg Q2H PRN IV PUSH 06/08/16 05:45 (Ativan Inj) 2 mg Q1H PRN IV PUSH 06/08/16 05:45 (Ativan Inj) 2 mg Q15M PRN IV PUSH 06/08/16 05:45 (Haldol Inj) 2 mg Q15M PRN IM 06/08/16 05:45 (NS Flush) 2 ml UNSCH PRN IV FLUSH 06/08/16 05:45 (NS Flush) 2 ml BID IV FLUSH 06/08/16 09:00 06/09/16 09:00 (Zofran Inj) 4 mg Q6H PRN IVP 06/08/16 05:45 (Dulcolax Supp) 10 mg DAILY PRN RECTAL 06/08/16 05:45 (Tylenol) 650 mg Q6H PRN PO 06/08/16 05:45 (Lexapro) 20 mg DAILY PO 06/09/16 09:00 06/09/16 10:10 (Librium) 10 mg TID PO 06/08/16 18:00 06/09/16 14:11 (Ambien) 5 mg HS PRN PO 06/08/16 23:30 06/08/16 23:46 (Keppra) 500 mg Q12HR PO 06/09/16 13:00 06/09/16 14:11 A/P Assessment and Plan 65-year-old female with history of anxiety and alcohol abuse presents via [facility] with seizure activity on 06/07/16. Seizure: suspect alcohol withdrawal seizure however patient was also having this episodes prior to cutting back on alcohol. She recently cut back from 8-10 beers/day to 2 beers/day. Head CT images reviewed, unremarkable. UDS negative and etoh level 3. Correct electrolytes. Consult neurology, started on Keppra 500mg po bid. EEG results pending. MRI/MRA brain unremarkable. ESR, TSH, vit B12 , ammonia all wnl. Seizure precautions. Ativan prn seizure. No further seizure activity. Cleared for d/c by Dr. Ortega, discussed with him, f/up as outpatient tomorrow, continue Keppra bid and Librium taper at discharge. Extensively discussed diagnosis/plan with patient and who verbalized understanding. Alcohol Abuse with Acute Alcohol Withdrawal: Continue thiamine/folate/MV. WA protocol. Extensively counseled on alcohol cessation. Start Librium 10mg tid with plan to taper at discharge. Seizure precautions. Hyponatremia: likely beer potomania with dehydration. Na 130. S/p IVF bolus in ER. Repeat BMP shows improvement with Na 136. Resolved. Hypokalemia: likely secondary to poor oral intake and recent vomiting. K 3.1. Given KCl replacement. Repeat BMP with improvement, K 3.4, given additional po KCl replacement. Elevated Blood Glucose: random glucose 186, no hx of diabetes. HgbA1c pending at discharge. Transaminitis: AST 119, ALT 57. Likely secondary to chronic alcohol abuse. Recommended alcohol cessation. Outpatient f/up with GI. Anxiety: chronic, continue patient's Lexapro. DVT Prophylaxis: SCDs Written by Salma Martínez, acting as scribe for Dr. Bailon on 06/09/16 at 15: 46. Discharge Planning Discharge patient to home Condition on discharge: Improved Regular Diet as tolerated, no alcohol Ad Jocelin activity, seizure precautions, no driving Rx written: Keppra 500mg po bid, Librium taper, Thiamine 100mg daily Follow-up with primary care physician Dr. Honeycutt in 1 week Follow up with neurologist Dr. Ortega as scheduled tomorrow 06/10 Attending Statement This note was transcribed by scribe Salma Martínez. I, Dr. Katharine Bailon personally performed the history, physical exam, and medical decision making; and confirmed the accuracy of the information in the transcribed note. Salma Martínez PA-C Jun 09, 2016 15:50 Katharine Bailon MD Jun 10, 2016 18:20
[2016-06-09] MEDS ORDERED: CHLO5CAP3 PO (16:07)
[2016-06-09 16:23] VITALS: BP 120/69; PULSE 75; RESP 18; TEMP 97.1; O2SAT 96
[2016-06-09 17:08] LABS: HEMOGLOBIN A1a 1.3 %; HEMOGLOBIN A1b 0.8 %; HEMOGLOBIN Ao 85.2 %; HEMOGLOBIN F 1.2 %; HEMOGLOBIN LA1C 1.7 %; HEMOGLOBIN P3 3.5 %
--- NOTE | 2016-06-09 20:11 | MG ---
cc: MIKE GRAYSON M.D. Lab No: Date: 06/09/2016 Age: Sex: F Race: REQUESTING PHYSICIAN JARRET Gannon. INTRODUCTION An EEG was obtained on this 65-year-old patient being evaluated for seizure-like activity. DESCRIPTION The patient is described as awake. There is 10-12 per second alpha activity in the central and posterior head regions. Anteriorly there are beta rhythms intermixed with a lot of muscle artifact. Photic stimulation showed no changes. The patient seems to remain awake throughout the EEG. INTERPRETATION Somewhat limited EEG because of the associated artifact but the study shows no abnormalities. MD TATA Garrett/KK /6:23 PM /8:07 PM
[2016-06-11] MEDS ORDERED: THIAMINE HCL 100 MG TAB PO SCH (09:00)
== END 2016-06-09 18:20 | disposition home or self-care (01) | DRG 897 ==
LOC: NEPE 02:11 → NEDA 05:41 → N05A 08:15
PROVIDERS: ADMIT Family Medicine; ATTEND Family Medicine
DX: F10.239 Alcohol dependence with withdrawal, unspecified (principal); R56.9 Unspecified convulsions; E87.1 Hypo-osmolality and hyponatremia; E87.6 Hypokalemia; R29.6 Repeated falls; G47.00 Insomnia, unspecified; F41.9 Anxiety disorder, unspecified; E86.0 Dehydration; R73.9 Hyperglycemia, unspecified; R74.0 Nonspecific elevation of levels of transaminase and lactic acid dehydrogenase [LDH]; Z96.649 Presence of unspecified artificial hip joint; Z96.611 Presence of right artificial shoulder joint; Z87.891 Personal history of nicotine dependence
CPT/HCPCS: 70450; 70544; 70551; 80048; 80053; 80307; 82140; 82607; 82948; 83036; 84443; 85025; 85652; 93005; 95819; 96374; 96375; J2060; J3411; J7030; J7040

== ENCOUNTER 2017-04-03 18:10 | Inpatient (IN) | payer MEDICARE ==
[~2017-04-03] VITALS: Ht 162.6 cm; Wt 66.1 kg
[~2017-04-03 18:10] MED LIST changes: +ADVI200C PO; -ADVI200T16; -CALC500 PO; -CENTTAB9 PO; +CHLO5CAP3 PO; +ESCI20TA PO; -FAMO20 PO; -HYDR-3533 PO; +LEVE500T8 PO; -LEXA10TA PO; -LOPE2 PO; +MELA1TAB18 PO; -MELA3TAB14; +OSCA200T PO; -TUMS500C CHEW; +VITA100T2 PO
[2017-04-03 18:12] VITALS: BP 140/66; PULSE 91; RESP 14; TEMP 99; O2SAT 97
[2017-04-03 19:00] VITALS: BP 123/60; PULSE 82; RESP 18; O2SAT 97
[2017-04-03] MEDS ORDERED: KETOROLAC TROMETHAMINE 30 MG/ML (IVP) VIAL IVP ONE (19:00)
[2017-04-03] MEDS ORDERED: VANCOMYCIN INJ 1,000 MG in SODIUM CHLOR 0.9% 250 ML INJ 250 ML IV ONE (19:00)
[2017-04-03] MEDS ORDERED: PIPERACIL-TAZO 4.5 GM PREMIX 100 ML IV ONE (19:00)
[2017-04-03] MEDS ORDERED: ADVI200T17 PO (19:28)
[2017-04-03] MEDS ORDERED: TRAM50TA PO (19:28)
[2017-04-03 19:46] LABS: AUTOMATED NEUTROPHIL # 7.4 TH/MM3 (1.8-7.7); BASOPHIL # 0.1 TH/MM3 (0-0.2); BASOPHIL % 0.6 % (0.0-2.0); EOSINOPHIL # 0.1 TH/MM3 (0-0.4); EOSINOPHIL % 1.6 % (0.0-4.0); HEMATOCRIT 35.1 % (35.0-46.0); HEMOGLOBIN 12.3 GM/DL (11.6-15.3); LYMPH % 9.5 % (9.0-44.0); LYMPHOCYTE # 0.9 TH/MM3 (1.0-4.8); MEAN CELL VOLUME 95.5 FL (80.0-100.0); MEAN CORPUSCULAR HEMOGLOBIN 33.4 PG (27.0-34.0); MEAN CORPUSCULAR HGB CONC 34.9 % (32.0-36.0); MONO % 9.8 % (0.0-8.0); MONOCYTE # 0.9 TH/MM3 (0-0.9); NEUT % 78.5 % (16.0-70.0); PLATELET COUNT 337 TH/MM3 (150-450); RED BLOOD COUNT 3.68 MIL/MM3 (4.00-5.30); WHITE BLOOD COUNT 9.5 TH/MM3 (4.0-11.0)
[2017-04-03 19:53] LABS: ALBUMIN 3.5 GM/DL (3.4-5.0); AST (GOT) 21 U/L (15-37); BICARBONATE 27.8 MEQ/L (21.0-32.0); BLOOD UREA NITROGEN 6 MG/DL (7-18); CALCIUM 8.3 MG/DL (8.5-10.1); CHLORIDE 93 MEQ/L (98-107); CREATININE 0.92 MG/DL (0.50-1.00); GLOMERULAR FILTRATION RATE 61 ML/MIN (>89); GLUCOSE,RANDOM 91 MG/DL (74-106); SODIUM (NA) 128 MEQ/L (136-145)
[2017-04-03 19:54] LABS: ALT (GPT) 23 U/L (10-53)
[2017-04-03 19:56] LABS: ALKALINE PHOSPHATASE 97 U/L (45-117); TOTAL BILIRUBIN ADULT 0.3 MG/DL (0.2-1.0); TOTAL PROTEIN 7.1 GM/DL (6.4-8.2)
--- NOTE | 2017-04-03 20:04 | RADRPT ---
EXAM DATE/TIME: 04/03/2017 19:36 [facility] COMPARISON: No previous studies available for comparison. INDICATIONS : Inflammation and pain to 1st digit of right foot status post bunionectpmy 2 weeks ago. MEDICAL HISTORY : None. SURGICAL HISTORY : Bunionectomy 1st digit, right foot. ENCOUNTER: Initial ACUITY: 2 days PAIN SCORE: 6/10 LOCATION: Right Foot, 1st digit. FINDINGS: There is some soft tissue swelling adjacent to the first metatarsal phalangeal joint. There is joint space narrowing with primary degenerative changes. No acute fracture or joint dislocation is demonstr ated. No replaced or bodies are demonstrated. CONCLUSION: 1. Soft tissue swelling and degenerative changes involving the first metatarsal-phalangeal joint. Devon Leavitt MD on April 03, 2017 at 20:01 Board Certified Radiologist. This report was verified electronically.
--- NOTE | 2017-04-03 20:28 | PD ---
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 Patient states this was done 2 weeks ago, and she had no trouble until she woke up this morning. Patient states she saw Dr. Dunn in his office yesterday and everything looked fine. Patient states through the day today she has had increased pain, redness, and swelling of the right foot. She has had chills and reports of fever. Pain is currently 8 out of 10. Patient states allergies to pentazocine PFSH Past Medical History Hx Anticoagulant Therapy: Yes (ASPRIN ) Arthritis: No Anxiety: Yes Depression: No Cancer: Yes (breast cancer (lumpectomy)) Cardiovascular Problems: No Chemotherapy: No Cerebrovascular Accident: No Endocrine: No Genitourinary: Yes Immune Disorder: No Implanted Vascular Access Dvce: Yes Kidney Stones: No Musculoskeletal: Yes Neurologic: Yes Psychiatric: Yes Reproductive: No Respiratory: No Migraines: No Radiation Therapy: Yes Renal Failure: No Seizures: Yes (hx but is no longer on medications for it ) ?: Not Past Surgical History AICD: No Arteriovenous Shunt: No Hysterectomy: Yes Insulin Pump: No Joint Replacement: Yes (Alphonse hip replacement; shoulder replacement) Pacemaker: No Other Surgery: Yes (LUMPECTOMY ) Social History Alcohol Use: Yes (2-3 BEERS A DAY ) Tobacco Use: No Substance Use: No Allergies-Medications (Allergen,Severity, Reaction): Coded Allergies: pentazocine (Verified Allergy, Unknown, 04/03/17) Reported Meds & Prescriptions Reported Meds & Active Scripts Active Reported Tramadol (Tramadol HCl) 50 Mg Tab 50 Mg PO Q6H PRN Advil Pm (Ibuprofen-Diphenhydramine) 200-38 Mg Tab 1 Tab PO HS PRN Melatonin 10 Mg Tab 10 Mg PO HS PRN Review of Systems Except as stated in HPI: all other systems reviewed are Neg General / Constitutional: Positive: Fever, Chills Eyes: No: Visual changes HENT: No: Headaches Cardiovascular: No: Chest Pain or Discomfort Respiratory: No: Shortness of Breath Gastrointestinal: No: Abdominal Pain Genitourinary: No: Dysuria Musculoskeletal: No: Pain Skin: No Rash Neurologic: No: Weakness Psychiatric: No: Depression Endocrine: No: Polydipsia Hematologic/Lymphatic: No: Easy Bruising Physical Exam Narrative GENERAL: Patient appears in mild distress. SKIN: Warm and dry. Normal color. Normal turgor. Patient has obvious incision site on the dorsal surface of the right great toe/distal right foot with sutures in place. The area is erythematous, warm, and indurated with small amount of yellowish drainage noted. The foot itself is slightly swollen along the dorsal aspect, and tender with palpation. Patient has tenderness behind the right knee consistent with lymphadenopathy. There is no lymphadenopathy in the inguinal lymph nodes on the right. HEAD: Atraumatic. Normocephalic. EYES: Pupils equal and round. No scleral icterus. No injection or drainage. ENT: No nasal bleeding or discharge. Mucous membranes pink and moist. Pharynx is clear. Airway is patent. NECK: Trachea midline. Supple and nontender CARDIOVASCULAR: Regular rate and rhythm. RESPIRATORY: No accessory muscle use. Clear to auscultation. Breath sounds equal bilaterally. GASTROINTESTINAL: Abdomen soft, non-tender, nondistended. Hepatic and splenic margins not palpable. MUSCULOSKELETAL: Extremities without clubbing, cyanosis, or edema. No obvious deformities. See skin. NEUROLOGICAL: Awake and alert. No obvious cranial nerve deficits. Motor grossly within normal limits. Five out of 5 muscle strength in the arms and legs. Normal speech. PSYCHIATRIC: Appropriate mood and affect; insight and judgment normal. Data Data Last Documented VS Vital Signs Date Time Temp Pulse Resp B/P (MAP) Pulse Ox O2 Delivery O2 Flow Rate FiO2 04/03/17 19:10 Room Air 04/03/17 19:09 100 04/03/17 19:00 82 18 123/60 (81) 04/03/17 18:12 99.0 Orders Orders Sepsis Workup Initiated (04/03/17 ) Complete Blood Count With Diff (04/03/17 18:25) Comprehensive Metabolic Panel (04/03/17 18:25) Lactic Acid Sepsis Protocol (04/03/17 18:25) Blood Culture (04/03/17 18:25) Iv Access Insert/Monitor (04/03/17 18:25) Oxygen Administration (04/03/17 18:25) Oximetry (04/03/17 18:25) Blood Glucose (04/03/17 18:25) Ketorolac Inj (Toradol Inj) (04/03/17 19:00) Foot, Complete ([id number]) (04/03/17 18:55) Piperacil-Tazo 4.5 Gm Premix (Zosyn 4.5 (04/03/17 19:00) Vancomycin Inj (Vancomycin Inj) (04/03/17 19:00) Wound Culture And Gram Stain (04/03/17 21:27) Consult Podiatry (04/03/17 ) (Hub Use Only)Inp Phy Cons/Ref (04/03/17 ) Admit Order (Ed Use Only) (04/03/17 21:47) Labs Laboratory Tests Test 04/03/17 18:55 04/03/17 18:56 Lactic Acid Level 1.0 mmol/L White Blood Count 9.5 TH/MM3 Red Blood Count 3.68 MIL/MM3 Hemoglobin 12.3 GM/DL Hematocrit 35.1 % Mean Corpuscular Volume 95.5 FL Mean Corpuscular Hemoglobin 33.4 PG Mean Corpuscular Hemoglobin Concent 34.9 % Red Cell Distribution Width 14.0 % Platelet Count 337 TH/MM3 Mean Platelet Volume 7.0 FL Neutrophils (%) (Auto) 78.5 % Lymphocytes (%) (Auto) 9.5 % Monocytes (%) (Auto) 9.8 % Eosinophils (%) (Auto) 1.6 % Basophils (%) (Auto) 0.6 % Neutrophils # (Auto) 7.4 TH/MM3 Lymphocytes # (Auto) 0.9 TH/MM3 Monocytes # (Auto) 0.9 TH/MM3 Eosinophils # (Auto) 0.1 TH/MM3 Basophils # (Auto) 0.1 TH/MM3 CBC Comment DIFF FINAL Differential Comment Blood Urea Nitrogen 6 MG/DL Creatinine 0.92 MG/DL Random Glucose 91 MG/DL Total Protein 7.1 GM/DL Albumin 3.5 GM/DL Calcium Level 8.3 MG/DL Alkaline Phosphatase 97 U/L Aspartate Amino Transf (AST/SGOT) 21 U/L Alanine Aminotransferase (ALT/SGPT) 23 U/L Total Bilirubin 0.3 MG/DL Sodium Level 128 MEQ/L Potassium Level 3.7 MEQ/L Chloride Level 93 MEQ/L Carbon Dioxide Level 27.8 MEQ/L Anion Gap 7 MEQ/L Estimat Glomerular Filtration Rate 61 ML/MIN [facility] Medical Decision Making Medical Screen Exam Complete: Yes Emergency Medical Condition: Yes Medical Record Reviewed: Yes Differential Diagnosis Status post bunionectomy. Cellulitis. Osteomyelitis. Narrative Course Patient appears stable at time of exam. Labs ordered including CBC, CMP, lactic acid, blood cultures 2. X-rays of the right foot are ordered. CBC shows no significant leukocytosis. CMP is unremarkable except for sodium of 128, chloride of 93, BUN is 6, creatinine 0.92. GFR is estimated at 61. Lactic acid is normal at 1.0. Right foot x-ray showed: FINDINGS: There is some soft tissue swelling adjacent to the first metatarsal phalangeal joint. There is joint space narrowing with primary degenerative changes. No acute fracture or joint dislocation is demonstrated. No replaced or bodies are demonstrated. Patient is given 4.5 g Zosyn IV as well as 1000 mg of vancomycin IV. Patient was given 1000 mL of normal saline bolus. Patient is given 2 mg morphine IV for pain Call was placed to Dr. Dunn to discuss the patient. Patient discussed with Dr. Begum, who was covering for Dr. Dunn, and agreed to come see the patient here in the ED. Dr. Begum would like the patient admitted to Observation and continue with IV antibiotics and reassessment in the morning. Call placed to [facility] for admission. Diagnosis Primary Impression: Cellulitis of great toe, right Additional Impression: History of bunionectomy of right great toe Admitting Information Admitting Physician Requests: Observation Condition: Stable Gasper Richey Apr 03, 2017 20:28
--- NOTE | 2017-04-03 21:57 | HHI.HP ---
[facility] Jonny Honeycutt M.D. Admission Diagnosis Right Toe Cellulitis S/P Bunionectomy Diagnoses: (1) S/P bunionectomy Diagnosis: Principal (2) Cellulitis of great toe, right Diagnosis: Principal (3) Hyponatremia Diagnosis: Principal Travel History International Travel<30 Days: No Contact w/Intl Traveler <30 Da: No Traveled to Known Affected Are: No History of Present Illness This is a 66-year-old female with a PMH of Breast CA who was sent to the ER by her Fitness Specialist, Dr. Dunn for eval of right foot infection. Per pt, she underwent bunionectomy on 03/25/[address] Dunn, was on prophylactic antibiotics post-op which she completed as instructed. Seen in office yesterday afternoon for follow-up w/ normal exam, however states she developed acute erythema/edema and pain to surgical site last night. Reports associated fever, chills. Pain is sharp, intermittent, 6/10, non-radiating. On arrival, BP 140/66, HR 91, O2 sat 97% on RA, Temp 99.0. CBC essentially unremarkable except for elevated neutrophil count of 78. Na 128. GFR 61. Foot X-ray was soft tissue swelling and degenerative changes. Dr. Conn consulted, evaluated pt in ER, recommendation for admission to continue w/ IV Abx. Review of Systems Except as stated in HPI: all other systems reviewed are Neg ROS: 14 point review of systems otherwise negative. Past Family Social History Past Medical History PMH: Breast CA Past Surgical History PAST SURGICAL HISTORY: Lumpectomy, Bilateral Hip Replacement, Shoulder Surgery , Hysterectomy Allergies: Coded Allergies: pentazocine (Verified Allergy, Unknown, 04/03/17) Family History PAST FAMILY HISTORY: Reviewed. No h/o DM or CAD Social History PAST SOCIAL HISTORY: Negative for tobacco or drugs. Drinks 2-3 beers per day. Physical Exam Vital Signs Vital Signs Date Time Temp Pulse Resp B/P (MAP) Pulse Ox O2 Delivery O2 Flow Rate FiO2 04/03/17 20:18 16 04/03/17 19:10 Room Air 04/03/17 19:09 100 Room Air 04/03/17 19:00 82 18 123/60 (81) 97 Room Air 04/03/17 18:12 99.0 91 14 140/66 (90) 97 Physical Exam PE: GENERAL: Extremely pleasant middle-aged white female in no acute distress. HEENT: PERRLA, EOMI. No scleral icterus or conjunctival pallor. No lid lag or facial droop. CARDIOVASCULAR: Regular rate and rhythm. No obvious murmurs to auscultation. No chest tenderness to palpation. RESPIRATORY: No obvious rhonchi or wheezing. Clear to auscultation. Breath sounds equal bilaterally. GASTROINTESTINAL: Abdomen soft, non-tender, nondistended. BS normal. MUSCULOSKELETAL: Extremities without clubbing, cyanosis, or edema. No obvious deformities. Right foot incision w/ sutures in place, +erythema/warmth. Pulses intact. NEUROLOGICAL: Awake, alert and oriented x4. No focal neurologic deficits. Moving both upper and lower extremities spontaneously. Laboratory Laboratory Tests Test 04/03/17 18:55 04/03/17 18:56 Lactic Acid Level 1.0 White Blood Count 9.5 Red Blood Count 3.68 Hemoglobin 12.3 Hematocrit 35.1 Mean Corpuscular Volume 95.5 Mean Corpuscular Hemoglobin 33.4 Mean Corpuscular Hemoglobin Concent 34.9 Red Cell Distribution Width 14.0 Platelet Count 337 Mean Platelet Volume 7.0 Neutrophils (%) (Auto) 78.5 Lymphocytes (%) (Auto) 9.5 Monocytes (%) (Auto) 9.8 Eosinophils (%) (Auto) 1.6 Basophils (%) (Auto) 0.6 Neutrophils # (Auto) 7.4 Lymphocytes # (Auto) 0.9 Monocytes # (Auto) 0.9 Eosinophils # (Auto) 0.1 Basophils # (Auto) 0.1 CBC Comment DIFF FINAL Differential Comment Blood Urea Nitrogen 6 Creatinine 0.92 Random Glucose 91 Total Protein 7.1 Albumin 3.5 Calcium Level 8.3 Alkaline Phosphatase 97 Aspartate Amino Transf (AST/SGOT) 21 Alanine Aminotransferase (ALT/SGPT) 23 Total Bilirubin 0.3 Sodium Level 128 Potassium Level 3.7 Chloride Level 93 Carbon Dioxide Level 27.8 Anion Gap 7 Estimat Glomerular Filtration Rate 61 Date/Time Source Procedure Growth Status 04/03/17 18:50 Blood Peripheral Aerobic Blood Culture Pending Received 04/03/17 18:50 Blood Peripheral Anaerobic Blood Culture Pending Received 04/03/17 21:34 Wound Toe Gram Stain Pending Received 04/03/17 21:34 Wound Toe Wound Culture Pending Received Result Diagram: 04/03/17185504/03/171855 Caprini VTE Risk Assessment Caprini VTE Risk Assessment: No/Low Risk (score <= 1) Caprini Risk Assessment Model Point Value = 1 Point Value = 2 Point Value = 3 Point Value = 5 Age 41-60 Minor surgery BMI > 25 kg/m2 Swollen legs Varicose veins or History of unexplained or recurrent spontaneous Oral contraceptives or hormone replacement Sepsis (< 1 month) Serious lung disease, including pneumonia (< 1 month) Abnormal pulmonary function Acute myocardial infarction Congestive heart failure (< 1 month) History of inflammatory bowel disease Medical patient at bed rest Age 61-74 Arthroscopic surgery Major open surgery (> 45 min) Laparoscopic surgery (> 45 min) Malignancy Confined to bed (> 72 hours) Immobilizing plaster cast Central venous access Age >= 75 History of VTE Family history of VTE Factor V Leiden Prothrombin [id number] Lupus anticoagulant Anticardiolipin antibodies Elevated serum homocysteine Heparin-induced thrombocytopenia Other congenital or acquired thrombophilia Stroke (< 1 month) Elective arthroplasty Hip, pelvis, or leg fracture Acute spinal cord injury (< 1 month) Prophylaxis Regimen Total Risk Factor Score Risk Level Prophylaxis Regimen 0-1 Low Early ambulation 2 Moderate Order ONE of the following: *Sequential Compression Device (SCD) *Heparin 5000 units SQ BID 3-4 Higher Order ONE of the following medications: *Heparin 5000 units SQ TID *Enoxaparin/Lovenox 40 mg SQ daily (WT < 150 kg, CrCl > 30 mL/min) *Enoxaparin/Lovenox 30 mg SQ daily (WT < 150 kg, CrCl > 10-29 mL/min) *Enoxaparin/Lovenox 30 mg SQ BID (WT < 150 kg, CrCl > 30 mL/min) AND/OR *Sequential Compression Device (SCD) 5 or more Highest Order ONE of the following medications: *Heparin 5000 units SQ TID (Preferred with Epidurals) *Enoxaparin/Lovenox 40 mg SQ daily (WT < 150 kg, CrCl > 30 mL/min) *Enoxaparin/Lovenox 30 mg SQ daily (WT < 150 kg, CrCl > 10-29 mL/min) *Enoxaparin/Lovenox 30 mg SQ BID (WT < 150 kg, CrCl > 30 mL/min) AND *Sequential Compression Device (SCD) Assessment and Plan Problem List: (1) S/P bunionectomy ICD Code: Z98.890 - Other specified postprocedural states (2) Cellulitis of great toe, right ICD Code: L03.031 - Cellulitis of right toe Status: Acute (3) Hyponatremia ICD Code: E87.1 - Hypo-osmolality and hyponatremia Assessment and Plan A/P: 1. S/p Bunionectomy: s/p surgical intervention 03/25/[address] Dunn, uncomplicated post-op course until now. Analgesics/antiemetics as needed. 2. Right Foot Infection: post-op surgical infection, low-grade temp, WBC normal however elevated neutrophil count. Foot X-ray was soft tissue swelling, images reviewed by me. S/p eval by Dr. Conn w/ Podiatry, recommendation for antibiotics and observation, no surgical intervention planned at this time, will re-eval in am. Continue w/ IV Abx. Follow up Blood/Wound Cultures. 3. Hyponatremia: Na 128. IVF for hydration, check U/a to eval for possible underlying UTI. Repeat labs in am for trend. 4. DVT Prophylaxis: Mechanical contraindication secondary to wound 5. Social work for d/c planning as needed. 6. Case discussed at length w/ ER physician, labs/records/imaging reviewed by me. Bobbi Gaitan MD Apr 03, 2017 21:57
[2017-04-03] MEDS ORDERED: ONDANSETRON HCL 4 MG/2 ML VIAL IVP PRN (22:00)
[2017-04-03] MEDS ORDERED: MAGNESIUM HYDROXIDE SUSP 30 ML CUP PO PRN (22:00)
[2017-04-03] MEDS ORDERED: BISACODYL 10 MG SUPP RECTAL PRN (22:00)
[2017-04-03] MEDS ORDERED: ACETAMINOPHEN 325 MG TAB PO PRN (22:00)
[2017-04-03] MEDS ORDERED: SENNOSIDES 8.6 MG TAB PO PRN (22:00)
[2017-04-03] MEDS ORDERED: LACTULOSE SYRUP 20 GM/30 ML CUP PO PRN (22:00)
[2017-04-03] MEDS ORDERED: SODIUM CHLORIDE 0.9% FLUSH 10 ML FLUSH IV FLUSH PRN (22:00)
[2017-04-03] MEDS ORDERED: Vancomycin Consult Pharmacy 1 EA OTHER SCH (22:00)
[2017-04-03] MEDS ORDERED: VANCOMYCIN INJ 750 MG in SODIUM CHLOR 0.9% 250 ML INJ 250 ML IV ONE (23:00)
[2017-04-04] VITALS (7 sets, daily range): BP systolic 120–155; BP diastolic 60–88; PULSE 78–97; RESP 18–20; TEMP 97.8–98.6; O2SAT 95–99
[2017-04-04] MEDS: MORPHINE SULFATE 2 MG/ML INJ IV PUSH PRN ×5 (00:54→17:18)
[2017-04-04] MEDS ORDERED: LORazepam 2 MG TAB PO PRN (01:00)
[2017-04-04] MEDS ORDERED: LORazepam 2 MG/ML VIAL IV PUSH PRN ×4 (01:00)
[2017-04-04] MEDS ORDERED: FLUMAZENIL 0.5 MG/5 ML VIAL IV PUSH PRN (01:00)
[2017-04-04] MEDS: MELATONIN 5 MG TAB PO PRN (01:12)
[2017-04-04 01:48] LABS: AMORPHOUS SEDIMENT, URINE RARE; BACTERIA, URINE OCC /hpf; BILIRUBIN, URINE NEG (NEG); BLOOD, URINE NEG (NEG); GLUCOSE,URINE NEG (NEG); KETONE, URINE NEG (NEG); NITRITE,URINE NEG (NEG); SQUAMOUS EPITHELIAL CELL URINE 1 /hpf (0-5); URINE COLOR LIGHT-YELLOW (YELLW/STRAW); URINE LEUKOCYTE ESTERASE LARGE (NEG); WHITE BLOOD CELL CLUMPS MOD
--- NOTE | 2017-04-04 05:34 | PD.CONS ---
History of Present Illness Service Foot and Ankle Surgery/Podiatry Consult Requested By Reason for Consult Right foot infection Primary Care Physician Jonny Honeycutt M.D. Diagnoses: History of Present Illness Podiatry consultation for 66-year-old female with past medical history of breast cancer who who proceeded to the emergency room when she noticed increased redness and swelling to right foot. Patient is status post bunionectomy on March 07, [address] Dunn. Patient states she completed a course of prophylactic antibiotics. Patient states she was seen in the office yesterday by her surgeon and there were no signs of infection, and she is concerned and surprised by the rapid spread of redness and swelling. She reports fevers and chills and states her pain is sharp. Review of Systems Constitutional: COMPLAINS OF: Fever, Chills Eyes: DENIES: Blurred vision Ears, nose, mouth, throat: DENIES: Hearing loss Respiratory: DENIES: Cough, Shortness of breath Cardiovascular: DENIES: Chest pain Gastrointestinal: DENIES: Nausea, Vomiting Integumentary: COMPLAINS OF: Abnormal pigmentation Psychiatric: DENIES: Anxiety, Confusion, Mood changes Past Family Social History Allergies: Coded Allergies: pentazocine (Verified Allergy, Unknown, 04/03/17) Past Medical History as dictated in HPI Past Surgical History s/p bunionectomy Active Ordered Medications Current Medications Medications (Trade) Dose Ordered Sig/[place] Route Start Time Stop Time Status Last Admin Pharmacy Profile Note 0 ml @ 0 mls/hr UNSCH OTHER 04/03/17 22:00 Cefepime HCl 1000 mg/Sodium Chloride 100 ml @ 200 mls/hr Q12H IV 04/04/17 09:00 (NS Flush) 2 ml UNSCH PRN IV FLUSH 04/03/17 22:00 (NS Flush) 2 ml BID IV FLUSH 04/04/17 09:00 (Zofran Inj) 4 mg Q6H PRN IVP 04/03/17 22:00 (Tylenol) 650 mg Q6H PRN PO 04/03/17 22:00 ([place] 5-325 Mg) 1 tab Q4H PRN PO 04/03/17 22:00 (Morphine Inj) 2 mg Q3H PRN IV PUSH 04/03/17 22:00 04/04/17 03:56 (Rachel-Colace) 1 tab BID PO 04/04/17 09:00 (Milk Of Magnesia Liq) 30 ml Q12H PRN PO 04/03/17 22:00 (Senokot) 17.2 mg Q12H PRN PO 04/03/17 22:00 (Dulcolax Supp) 10 mg DAILY PRN RECTAL 04/03/17 22:00 (Lactulose Liq) 30 ml DAILY PRN PO 04/03/17 22:00 (Melatonin) 10 mg HS PRN PO 04/03/17 23:45 04/04/17 01:12 (Folate) 1 mg DAILY PO 04/04/17 09:00 04/09/17 08:59 (Vitamin B1) 100 mg DAILY PO 04/04/17 09:00 (Theragran M Tab) 1 tab DAILY PO 04/04/17 09:00 04/09/17 08:59 (Romazicon Inj) 0.2 mg Q1M PRN IV PUSH 04/04/17 01:00 (Ativan) 1 mg Q4H PRN PO 04/04/17 01:00 (Ativan Inj) 1 mg Q4H PRN IV PUSH 04/04/17 01:00 (Ativan) 2 mg Q2H PRN PO 04/04/17 01:00 (Ativan Inj) 2 mg Q2H PRN IV PUSH 04/04/17 01:00 (Ativan Inj) 2 mg Q1H PRN IV PUSH 04/04/17 01:00 (Ativan Inj) 2 mg Q15M PRN IV PUSH 04/04/17 01:00 Physical Exam Vital Signs Vital Signs Date Time Temp Pulse Resp B/P (MAP) Pulse Ox O2 Delivery O2 Flow Rate FiO2 04/04/17 05:20 97.8 97 18 147/88 (107) 97 04/04/17 01:05 98.5 89 18 155/78 (103) 95 04/04/17 00:30 04/03/17 20:18 16 04/03/17 19:10 Room Air 04/03/17 19:09 100 Room Air 04/03/17 19:00 82 18 123/60 (81) 97 Room Air 04/03/17 18:12 99.0 91 14 140/66 (90) 97 Physical Exam GENERAL: This is a well-nourished, well-developed patient, in no apparent distress. SKIN: Increased erythema in dorsal right foot HEAD: Atraumatic. Normocephalic. No temporal or scalp tenderness. EYES: Pupils equal round and reactive. ENT: . Airway patent. NECK: Trachea midline. RESPIRATORY: nonlabored breathing MUSCULOSKELETAL: No calf tenderness. Negative Homans sign bilaterally. NEUROLOGICAL: Awake and alert. Normal speech. Vascular: DP PT 2/4. Capillary refill time under 3 seconds x5 digits to the right foot. Increased edema noted to right foot. Neuro: Gross sensation intact. No decrease in pinpoint sensation. Derm: Increased erythema noted to right dorsal first metatarsal at the incision. Mild seropurulent drainage noted to the incision line. Erythema increased to medial arch as well however there is no ascending erythema noted into the more proximal mid foot or ankle. Sutures intact skin well coapted MSK. Range of motion to first metatarsophalangeal joint diminished with pain on range of motion. Pain on palpation to right medial foot. Negative pain on calf squeeze right lower extremity. Laboratory Laboratory Tests Test 04/03/17 18:55 04/03/17 18:56 04/04/17 00:15 Lactic Acid Level 1.0 White Blood Count 9.5 Red Blood Count 3.68 Hemoglobin 12.3 Hematocrit 35.1 Mean Corpuscular Volume 95.5 Mean Corpuscular Hemoglobin 33.4 Mean Corpuscular Hemoglobin Concent 34.9 Red Cell Distribution Width 14.0 Platelet Count 337 Mean Platelet Volume 7.0 Neutrophils (%) (Auto) 78.5 Lymphocytes (%) (Auto) 9.5 Monocytes (%) (Auto) 9.8 Eosinophils (%) (Auto) 1.6 Basophils (%) (Auto) 0.6 Neutrophils # (Auto) 7.4 Lymphocytes # (Auto) 0.9 Monocytes # (Auto) 0.9 Eosinophils # (Auto) 0.1 Basophils # (Auto) 0.1 CBC Comment DIFF FINAL Differential Comment Blood Urea Nitrogen 6 Creatinine 0.92 Random Glucose 91 Total Protein 7.1 Albumin 3.5 Calcium Level 8.3 Alkaline Phosphatase 97 Aspartate Amino Transf (AST/SGOT) 21 Alanine Aminotransferase (ALT/SGPT) 23 Total Bilirubin 0.3 Sodium Level 128 Potassium Level 3.7 Chloride Level 93 Carbon Dioxide Level 27.8 Anion Gap 7 Estimat Glomerular Filtration Rate 61 Urine Color LIGHT-YELLOW Urine Turbidity HAZY Urine pH 5.0 Urine Specific [place] 1.008 Urine Protein NEG Urine Glucose (UA) NEG Urine Ketones NEG Urine Occult Blood NEG Urine Nitrite NEG Urine Bilirubin NEG Urine Urobilinogen LESS THAN 2.0 Urine Leukocyte Esterase LARGE Urine RBC 2 Urine WBC 71 Urine WBC Clumps MOD Urine Squamous Epithelial Cells 1 Urine Amorphous Sediment RARE Urine Bacteria OCC Microscopic Urinalysis Comment CULTURE INDICATED Date/Time Source Procedure Growth Status 04/03/17 18:50 Blood Peripheral Aerobic Blood Culture Pending Received 04/03/17 18:50 Blood Peripheral Anaerobic Blood Culture Pending Received 04/04/17 00:15 Urine Clean Catch Urine Culture Pending Received 04/03/17 21:34 Wound Toe Gram Stain Pending Received 04/03/17 21:34 Wound Toe Wound Culture Pending Received Result Diagram: 04/03/17185504/03/171855 Imaging Last Impressions Foot X-Ray 04/03/171854 Signed Impressions: Service Date/Time: Monday, April 03, 2017 19:36 - CONCLUSION: 1. Soft tissue swelling and degenerative changes involving the first metatarsal-phalangeal joint. Devon Leavitt MD Assessment and Plan Assessment and Plan 66-year-old female status post bunionectomy with surgical site infection Patient examined and evaluated with all questions answers Recommend patient be admitted for 23 hour observation and receive 3 doses of IV antibiotics Wound culture obtained Betadine DSD placed incision site Will evaluate patient prior to discharge and determine whether IV antibiotics are still necessary Weight-bearing as tolerated to right foot Lou Lowry DPM Apr 04, 2017 05:34
[2017-04-04] MEDS: SODIUM CHLORIDE 0.9% FLUSH 10 ML FLUSH IV FLUSH SCH ×2 (09:00→23:40)
[2017-04-04] MEDS: FOLIC ACID 1 MG TAB PO SCH (10:35)
[2017-04-04] MEDS: DOCUSATE SODIUM 50 MG/SENNA 8.6 MG TAB PO SCH ×2 (10:36→21:00)
[2017-04-04] MEDS: THIAMINE HCL 100 MG TAB PO SCH (10:36)
[2017-04-04] MEDS: MULTIVITAMINS/MINERALS THERAPEUTIC TAB PO SCH (10:37)
[2017-04-04] MEDS ORDERED: LORazepam 0.5 MG TAB PO ONE (10:45)
[2017-04-04] MEDS: CEFEPIME INJ 1,000 MG in SODIUM CHLORIDE 0.9% INJ 100 ML IV SCH ×3 (11:06→23:40)
[2017-04-04 12:53] LABS: AUTOMATED NEUTROPHIL # 7.9 TH/MM3 (1.8-7.7); BASOPHIL % 0.5 % (0.0-2.0); EOSINOPHIL # 0.1 TH/MM3 (0-0.4); EOSINOPHIL % 1.3 % (0.0-4.0); HEMATOCRIT 35.5 % (35.0-46.0); HEMOGLOBIN 12.4 GM/DL (11.6-15.3); LYMPHOCYTE # 0.8 TH/MM3 (1.0-4.8); MEAN CELL VOLUME 96.4 FL (80.0-100.0); MEAN CORPUSCULAR HEMOGLOBIN 33.7 PG (27.0-34.0); MEAN CORPUSCULAR HGB CONC 34.9 % (32.0-36.0); MEAN PLATELET VOLUME 6.7 FL (7.0-11.0); MONO % 11.9 % (0.0-8.0); MONOCYTE # 1.2 TH/MM3 (0-0.9); NEUT % 78.3 % (16.0-70.0); PLATELET COUNT 326 TH/MM3 (150-450); RED BLOOD COUNT 3.69 MIL/MM3 (4.00-5.30); RED CELL DISTRIBUTION WIDTH 13.7 % (11.6-17.2)
[2017-04-04 13:16] LABS: ALBUMIN 3.5 GM/DL (3.4-5.0); ALT (GPT) 18 U/L (10-53); AST (GOT) 21 U/L (15-37); BICARBONATE 23.6 MEQ/L (21.0-32.0); BLOOD UREA NITROGEN 6 MG/DL (7-18); CALCIUM 8.8 MG/DL (8.5-10.1); CHLORIDE 93 MEQ/L (98-107); GLOMERULAR FILTRATION RATE 100 ML/MIN (>89); GLUCOSE,RANDOM 126 MG/DL (74-106); SODIUM (NA) 126 MEQ/L (136-145)
[2017-04-04 13:24] LABS: ALKALINE PHOSPHATASE 99 U/L (45-117); TOTAL BILIRUBIN ADULT 0.8 MG/DL (0.2-1.0); TOTAL PROTEIN 7.2 GM/DL (6.4-8.2)
--- NOTE | 2017-04-04 15:47 | HHI.PR ---
Subjective Remarks This is a 66-year-old female with a PMH of Breast CA who was sent to the ER by her Twister Tender, Dr. Dunn for eval of right foot infection. Per pt, she underwent bunionectomy on 03/25/[address] Dunn, was on prophylactic antibiotics post-op which she completed as instructed. Seen in office yesterday afternoon for follow-up w/ normal exam, however states she developed acute erythema/edema and pain to surgical site last night. Reports associated fever, chills. Pain is sharp, intermittent, 6/10, non-radiating. On arrival, BP 140/66, HR 91, O2 sat 97% on RA, Temp 99.0. CBC essentially unremarkable except for elevated neutrophil count of 78. Na 128. GFR 61. Foot X-ray was soft tissue swelling and degenerative changes. Dr. Conn consulted, evaluated pt in ER, recommendation for admission to continue w/ IV Abx. 2-10 SEEN BY PODIATRY NOT CLEARED FOR DISCHARGE YET CONTINUE CURRENT IV ANTIBIOTICS DW RN AND PT POSITIVE UTI ON UA Complains of right great toe and area distal to it with tenderness and pain and swelling Objective Vitals Vital Signs Date Time Temp Pulse Resp B/P (MAP) Pulse Ox O2 Delivery O2 Flow Rate FiO2 04/04/17 12:21 97.9 20 122/60 (80) 98 04/04/17 08:29 98.6 96 20 128/64 (85) 96 04/04/17 05:20 97.8 97 18 147/88 (107) 97 04/04/17 01:05 98.5 89 18 155/78 (103) 95 04/04/17 00:30 04/03/17 20:18 16 04/03/17 19:10 Room Air 04/03/17 19:09 100 Room Air 04/03/17 19:00 82 18 123/60 (81) 97 Room Air 04/03/17 18:12 99.0 91 14 140/66 (90) 97 I/O 04/03/17 04/03/17 04/03/17 04/04/17 04/04/17 04/04/17 07:00 15:00 23:00 07:00 15:00 23:00 Intake Total 350 ml 737.5 ml Balance 350 ml 737.5 ml Intake Oral 480 ml IV Total 350 ml 257.5 ml # Voids 2 # Bowel Movements 1 Result Diagram: 04/04/17 1235 04/04/17 1235 Other Results Laboratory Tests Test 04/03/17 18:55 04/03/17 18:56 04/04/17 00:15 04/04/17 12:35 Lactic Acid Level 1.0 mmol/L White Blood Count 9.5 TH/MM3 10.0 TH/MM3 Red Blood Count 3.68 MIL/MM3 3.69 MIL/MM3 Hemoglobin 12.3 GM/DL 12.4 GM/DL Hematocrit 35.1 % 35.5 % Mean Corpuscular Volume 95.5 FL 96.4 FL Mean Corpuscular Hemoglobin 33.4 PG 33.7 PG Mean Corpuscular Hemoglobin Concent 34.9 % 34.9 % Red Cell Distribution Width 14.0 % 13.7 % Platelet Count 337 TH/MM3 326 TH/MM3 Mean Platelet Volume 7.0 FL 6.7 FL Neutrophils (%) (Auto) 78.5 % 78.3 % Lymphocytes (%) (Auto) 9.5 % 8.0 % Monocytes (%) (Auto) 9.8 % 11.9 % Eosinophils (%) (Auto) 1.6 % 1.3 % Basophils (%) (Auto) 0.6 % 0.5 % Neutrophils # (Auto) 7.4 TH/MM3 7.9 TH/MM3 Lymphocytes # (Auto) 0.9 TH/MM3 0.8 TH/MM3 Monocytes # (Auto) 0.9 TH/MM3 1.2 TH/MM3 Eosinophils # (Auto) 0.1 TH/MM3 0.1 TH/MM3 Basophils # (Auto) 0.1 TH/MM3 0.0 TH/MM3 CBC Comment DIFF FINAL DIFF FINAL Differential Comment Blood Urea Nitrogen 6 MG/DL 6 MG/DL Creatinine 0.92 MG/DL 0.60 MG/DL Random Glucose 91 MG/DL 126 MG/DL Total Protein 7.1 GM/DL 7.2 GM/DL Albumin 3.5 GM/DL 3.5 GM/DL Calcium Level 8.3 MG/DL 8.8 MG/DL Alkaline Phosphatase 97 U/L 99 U/L Aspartate Amino Transf (AST/SGOT) 21 U/L 21 U/L Alanine Aminotransferase (ALT/SGPT) 23 U/L 18 U/L Total Bilirubin 0.3 MG/DL 0.8 MG/DL Sodium Level 128 MEQ/L 126 MEQ/L Potassium Level 3.7 MEQ/L 3.8 MEQ/L Chloride Level 93 MEQ/L 93 MEQ/L Carbon Dioxide Level 27.8 MEQ/L 23.6 MEQ/L Anion Gap 7 MEQ/L 9 MEQ/L Estimat Glomerular Filtration Rate 61 ML/MIN 100 ML/MIN Urine Color LIGHT-YELLOW Urine Turbidity HAZY Urine pH 5.0 Urine Specific [place] 1.008 Urine Protein NEG mg/dL Urine Glucose (UA) NEG mg/dL Urine Ketones NEG mg/dL Urine Occult Blood NEG Urine Nitrite NEG Urine Bilirubin NEG Urine Urobilinogen LESS THAN 2.0 MG/DL Urine Leukocyte Esterase LARGE Urine RBC 2 /hpf Urine WBC 71 /hpf Urine WBC Clumps MOD Urine Squamous Epithelial Cells 1 /hpf Urine Amorphous Sediment RARE Urine Bacteria OCC /hpf Microscopic Urinalysis Comment CULTURE INDICATED Imaging Last Impressions Foot X-Ray 04/03/17 5801 Signed Impressions: Service Date/Time: Monday, April 03, 2017 19:36 - CONCLUSION: 1. Soft tissue swelling and degenerative changes involving the first metatarsal-phalangeal joint. Devon Leavitt MD Objective Remarks GENERAL: Awake alert oriented 3 talkative and cooperative quite anxious SKIN: Warm and dry. Right great toe and area distal to it with tenderness swelling and erythema warmth still appears quite angry still with swelling and erythema and tenderness and warmth HEAD: Atraumatic. Normocephalic. EYES: Pupils equal and round. No scleral icterus. No injection or drainage. Extractor muscles intact glasses ENT: No nasal bleeding or discharge. Mucous membranes pink and moist. Tongue is midline NECK: Trachea midline. No JVD. Supple CARDIOVASCULAR: Regular rate and rhythm. S1 and S2 no S3 or S4 RESPIRATORY: No accessory muscle use. Clear to auscultation. Breath sounds equal bilaterally. GASTROINTESTINAL: Abdomen soft, non-tender, nondistended. Hepatic and splenic margins not palpable. MUSCULOSKELETAL: Extremities without clubbing, cyanosis, or edema. No obvious deformities. Right great toe with area distal to it with erythema and tenderness warmth and swelling NEUROLOGICAL: Awake and alert. No obvious cranial nerve deficits. Motor grossly within normal limits. Five out of 5 muscle strength in the arms and legs. Normal speech. PSYCHIATRIC: Appropriate mood and affect; insight and judgment normal. White anxious Procedures NONE Medications and IVs Current Medications Ketorolac Tromethamine (Toradol Inj) 30 mg ONCE ONCE IVP Last administered on 04/03/17at 19:18; Start 04/03/17 at 19:00; Stop 04/03/17 at 19:02; Status DC Piperacillin Sod/ Tazobactam Sod 100 ml @ 200 mls/hr ONCE ONCE IV Last administered on 04/03/17at 19:18; Start 04/03/17 at 19:00; Stop 04/03/17 at 19:29; Status DC Vancomycin HCl 1000 mg/Sodium Chloride 250 ml @ 250 mls/hr ONCE ONCE IV Last administered on 04/03/17at 19:18; Start 04/03/17 at 19:00; Stop 04/03/17 at 19:59; Status DC Pharmacy Profile Note 0 ml @ 0 mls/hr UNSCH OTHER ; Start 04/03/17 at 22:00 Cefepime HCl 1000 mg/Sodium Chloride 100 ml @ 200 mls/hr Q12H IV Last administered on 04/04/17at 11:06; Start 04/04/17 at 09:00 Sodium Chloride (NS Flush) 2 ml UNSCH PRN IV FLUSH FLUSH AFTER USING IV ACCESS ; Start 04/03/17 at 22:00 Sodium Chloride (NS Flush) 2 ml BID IV FLUSH ; Start 04/04/17 at 09:00 Ondansetron HCl (Zofran Inj) 4 mg Q6H PRN IVP NAUSEA OR VOMITING; Start at 22:00 Acetaminophen (Tylenol) 650 mg Q6H PRN PO FEVER/PAIN SCALE 1 TO 2; Start at 22:00 Acetaminophen/ Hydrocodone Bitart ([place] 5-325 Mg) 1 tab Q4H PRN PO PAIN SCALE 3 TO 5; Start 04/03/17 at 22:00 Morphine Sulfate (Morphine Inj) 2 mg Q3H PRN IV PUSH Pain 6-10 Last administered on 04/04/17at 10:28; Start 04/03/17 at 22:00 Senna/Docusate Sodium (Rachel-Colace) 1 tab BID PO Last administered on at 10:36; Start 04/04/17 at 09:00 Magnesium Hydroxide (Milk Of Magnesia Liq) 30 ml Q12H PRN PO Mild constipation ; Start 04/03/17 at 22:00 Sennosides (Senokot) 17.2 mg Q12H PRN PO Moderate constipation; Start 04/03/17 at 22:00 Bisacodyl (Dulcolax Supp) 10 mg DAILY PRN RECTAL SEVERE CONSITIPATION; Start at 22:00 Lactulose (Lactulose Liq) 30 ml DAILY PRN PO SEVERE CONSITIPATION; Start at 22:00 Vancomycin HCl 750 mg/Sodium Chloride 257.5 ml @ 250 mls/hr ONCE ONCE IV Last administered on 04/04/17at 00:53; Start 04/03/17 at 23:00; Stop 04/04/17 at 00:01; Status DC Melatonin (Melatonin) 10 mg HS PRN PO SLEEP Last administered on 04/04/17at 01: 12; Start 04/03/17 at 23:45 Folic Acid (Folate) 1 mg DAILY PO Last administered on 04/04/17at 10:35; Start 04/04/17 at 09:00; Stop 04/09/17 at 08:59 Thiamine HCl (Vitamin B1) 100 mg DAILY PO Last administered on 04/04/17at 10:36 ; Start 04/04/17 at 09:00 Multivitamins/ Minerals Therapeutic (Theragran M Tab) 1 tab DAILY PO Last administered on 04/04/17at 10:37; Start 04/04/17 at 09:00; Stop 04/09/17 at 08:59 Flumazenil (Romazicon Inj) 0.2 mg Q1M PRN IV PUSH SEE LABEL COMMENTS; Start 12/10 at 01:00 Lorazepam (Ativan) 1 mg Q4H PRN PO CIWA 8 - 10; Start 04/04/17 at 01:00 Lorazepam (Ativan Inj) 1 mg Q4H PRN IV PUSH CIWA 8 - 10; Start 04/04/17 at 01: 00 Lorazepam (Ativan) 2 mg Q2H PRN PO CIWA 11-14; Start 04/04/17 at 01:00 Lorazepam (Ativan Inj) 2 mg Q2H PRN IV PUSH CIWA 11-14; Start 04/04/17 at 01:00 Lorazepam (Ativan Inj) 2 mg Q1H PRN IV PUSH CIWA 15-20; Start 04/04/17 at 01:00 Lorazepam (Ativan Inj) 2 mg Q15M PRN IV PUSH CIWA > 20; Start 04/04/17 at 01:00 Lorazepam (Ativan) 0.5 mg ONCE ONCE PO Last administered on 04/04/17at 11:16; Start 04/04/17 at 10:45; Stop 04/04/17 at 11:07; Status DC Vancomycin HCl 1250 mg/Sodium Chloride 262.5 ml @ 250 mls/hr Q24H IV ; Start at 01:00 Miscellaneous Information SPECIFIC LAB TO BE ... ONCE ONCE .XX ; Start 04/07 at 00:45; Stop 04/07/17 at 00:46 A/P Problem List: (1) S/P bunionectomy ICD Code: Z98.890 - Other specified postprocedural states (2) Cellulitis of great toe, right ICD Code: L03.031 - Cellulitis of right toe Status: Acute (3) Hyponatremia ICD Code: E87.1 - Hypo-osmolality and hyponatremia Assessment and Plan 1. S/p Bunionectomy: s/p surgical intervention 03/25/[address] Dunn, uncomplicated post-op course until now. Analgesics/antiemetics as needed. 2. Right Foot Infection: post-op surgical infection, low-grade temp, WBC normal however elevated neutrophil count. Foot X-ray was soft tissue swelling, images reviewed by me. S/p eval by Dr. Conn w/ Podiatry, recommendation for antibiotics and observation, no surgical intervention planned at this time, will re-eval in am. Continue w/ IV Abx. Follow up Blood/Wound Cultures. 3. Hyponatremia: Na 128. IVF for hydration, check U/a to eval for possible underlying UTI. Repeat labs in am for trend. Will give salt tabs since trending down Positive UTI continue on current medications which should treat it 4. DVT Prophylaxis: Mechanical contraindication secondary to wound 5. Social work for d/c planning as needed. 6. Case discussed at length w/ ER physician, labs/records/imaging reviewed by me. Discharge Planning Remains on vancomycin cefepime Has cellulitis of the right foot and urinary tract infection Not cleared for discharge Chalo Jasso DO Apr 04, 2017 15:47
[2017-04-04] MEDS: SODIUM CHLORIDE 1 GRAM TAB PO SCH (20:45)
[2017-04-05 03:57] VITALS: BP 135/62; PULSE 66; RESP 18; TEMP 98.1; O2SAT 94
[2017-04-05] MEDS: VANCOMYCIN INJ 1,250 MG in SODIUM CHLOR 0.9% 250 ML INJ 250 ML IV SCH (04:18)
[2017-04-05 08:55] LABS: AUTOMATED NEUTROPHIL # 4.5 TH/MM3 (1.8-7.7); BASOPHIL % 0.7 % (0.0-2.0); EOSINOPHIL # 0.3 TH/MM3 (0-0.4); EOSINOPHIL % 5.6 % (0.0-4.0); HEMATOCRIT 37.4 % (35.0-46.0); LYMPH % 12.5 % (9.0-44.0); LYMPHOCYTE # 0.8 TH/MM3 (1.0-4.8); MEAN CELL VOLUME 97.8 FL (80.0-100.0); MEAN CORPUSCULAR HEMOGLOBIN 34.2 PG (27.0-34.0); MEAN CORPUSCULAR HGB CONC 34.9 % (32.0-36.0); MEAN PLATELET VOLUME 6.9 FL (7.0-11.0); MONO % 9.1 % (0.0-8.0); MONOCYTE # 0.6 TH/MM3 (0-0.9); NEUT % 72.1 % (16.0-70.0); PLATELET COUNT 296 TH/MM3 (150-450); RED BLOOD COUNT 3.82 MIL/MM3 (4.00-5.30); RED CELL DISTRIBUTION WIDTH 14.3 % (11.6-17.2); WHITE BLOOD COUNT 6.2 TH/MM3 (4.0-11.0)
[2017-04-05 09:20] LABS: ALBUMIN 3.3 GM/DL (3.4-5.0); AST (GOT) 23 U/L (15-37); BICARBONATE 27.9 MEQ/L (21.0-32.0); BLOOD UREA NITROGEN 6 MG/DL (7-18); CALCIUM 8.7 MG/DL (8.5-10.1); CHLORIDE 98 MEQ/L (98-107); CREATININE 0.58 MG/DL (0.50-1.00); GLOMERULAR FILTRATION RATE 104 ML/MIN (>89); SODIUM (NA) 133 MEQ/L (136-145)
[2017-04-05 09:22] LABS: GLUCOSE,RANDOM 91 MG/DL (74-106); MAGNESIUM 2.3 MG/DL (1.5-2.5)
[2017-04-05 09:31] LABS: ALKALINE PHOSPHATASE 88 U/L (45-117); ALT (GPT) 17 U/L (10-53); PHOSPHORUS 4.3 MG/DL (2.5-4.9); TOTAL BILIRUBIN ADULT 0.7 MG/DL (0.2-1.0)
[2017-04-05] MEDS: CEFEPIME INJ 1,000 MG in SODIUM CHLORIDE 0.9% INJ 100 ML IV SCH (10:38)
[2017-04-05] MEDS: THIAMINE HCL 100 MG TAB PO SCH (10:38)
[2017-04-05] MEDS: SODIUM CHLORIDE 0.9% FLUSH 10 ML FLUSH IV FLUSH SCH ×2 (10:39→22:00)
[2017-04-05] MEDS: DOCUSATE SODIUM 50 MG/SENNA 8.6 MG TAB PO SCH ×2 (10:39→21:00)
[2017-04-05] MEDS: MULTIVITAMINS/MINERALS THERAPEUTIC TAB PO SCH (10:39)
[2017-04-05] MEDS: FOLIC ACID 1 MG TAB PO SCH (10:39)
[2017-04-05] MEDS: SODIUM CHLORIDE 1 GRAM TAB PO SCH ×3 (11:27→18:00)
[2017-04-05] MEDS ORDERED: ROCURONIUM INJ 50 MG/5 ML SYRINGE IV PUSH ONE (12:00)
[2017-04-05] MEDS ORDERED: DEXAMETHASONE SOD PHOS 4 MG/ML VIAL IV ONE (12:00)
[2017-04-05] MEDS ORDERED: PHENYLEPH/NS 1000 MCG/10 ML SYR IV ONE (12:00)
[2017-04-05] MEDS ORDERED: PROPOFOL 200 MG/20 ML AMP IV ONE (12:00)
[2017-04-05] MEDS ORDERED: ONDANSETRON HCL 4 MG/2 ML VIAL IV ONE (12:00)
[2017-04-05] MEDS ORDERED: LIDOCAINE HCL 1% PF 5 ML SYRINGE OTHER ONE (12:00)
[2017-04-05 12:14] VITALS: BP 160/80; PULSE 70; RESP 18; TEMP 98.2; O2SAT 98
[2017-04-05] MEDS ORDERED: LEVOTHYROXINE SODIUM 25 MCG TAB PO ONE (12:30)
--- NOTE | 2017-04-05 12:39 | HHI.PR ---
Subjective Remarks This is a 66-year-old female with a PMH of Breast CA who was sent to the ER by her Assurance Manager, Dr. Dunn for eval of right foot infection. Per pt, she underwent bunionectomy on 03/25/[address] Dunn, was on prophylactic antibiotics post-op which she completed as instructed. Seen in office yesterday afternoon for follow-up w/ normal exam, however states she developed acute erythema/edema and pain to surgical site last night. Reports associated fever, chills. Pain is sharp, intermittent, 6/10, non-radiating. On arrival, BP 140/66, HR 91, O2 sat 97% on RA, Temp 99.0. CBC essentially unremarkable except for elevated neutrophil count of 78. Na 128. GFR 61. Foot X-ray was soft tissue swelling and degenerative changes. Dr. Conn consulted, evaluated pt in ER, recommendation for admission to continue w/ IV Abx. 2-10 SEEN BY PODIATRY NOT CLEARED FOR DISCHARGE YET CONTINUE CURRENT IV ANTIBIOTICS DW RN AND PT POSITIVE UTI ON UA Complains of right great toe and area distal to it with tenderness and pain and swelling 2-11 CONTINUE CURRENT ANTIBIOTICS CULTURES PENDING ON PROBABLE STAPH SPECIES AWAIT SENSITIVITIES DW RN AND PT AM LABS START SYNTHROID FOR HYPOTHYROIDISM Objective Vitals Vital Signs Date Time Temp Pulse Resp B/P (MAP) Pulse Ox O2 Delivery O2 Flow Rate FiO2 04/05/17 12:14 98.2 70 18 160/80 (106) 98 04/05/17 03:57 98.1 66 18 135/62 (86) 94 04/04/17 23:28 97.9 78 18 130/71 (90) 98 04/04/17 20:37 98.6 78 18 144/65 (91) 99 04/04/17 17:23 20 04/04/17 16:00 98.2 90 20 120/60 (80) 97 I/O 04/04/17 04/04/17 04/04/17 04/05/17 04/05/17 04/05/17 07:00 15:00 23:00 07:00 15:00 23:00 Intake Total 737.5 ml Balance 737.5 ml Intake Oral 480 ml IV Total 257.5 ml # Voids 2 1 # Bowel Movements 1 Result Diagram: 04/05/17 0830 04/05/17 0830 Other Results Laboratory Tests Test 04/03/17 18:55 04/03/17 18:56 04/04/17 00:15 04/04/17 12:35 Lactic Acid Level 1.0 mmol/L White Blood Count 9.5 TH/MM3 10.0 TH/MM3 Red Blood Count 3.68 MIL/MM3 3.69 MIL/MM3 Hemoglobin 12.3 GM/DL 12.4 GM/DL Hematocrit 35.1 % 35.5 % Mean Corpuscular Volume 95.5 FL 96.4 FL Mean Corpuscular Hemoglobin 33.4 PG 33.7 PG Mean Corpuscular Hemoglobin Concent 34.9 % 34.9 % Red Cell Distribution Width 14.0 % 13.7 % Platelet Count 337 TH/MM3 326 TH/MM3 Mean Platelet Volume 7.0 FL 6.7 FL Neutrophils (%) (Auto) 78.5 % 78.3 % Lymphocytes (%) (Auto) 9.5 % 8.0 % Monocytes (%) (Auto) 9.8 % 11.9 % Eosinophils (%) (Auto) 1.6 % 1.3 % Basophils (%) (Auto) 0.6 % 0.5 % Neutrophils # (Auto) 7.4 TH/MM3 7.9 TH/MM3 Lymphocytes # (Auto) 0.9 TH/MM3 0.8 TH/MM3 Monocytes # (Auto) 0.9 TH/MM3 1.2 TH/MM3 Eosinophils # (Auto) 0.1 TH/MM3 0.1 TH/MM3 Basophils # (Auto) 0.1 TH/MM3 0.0 TH/MM3 CBC Comment DIFF FINAL DIFF FINAL Differential Comment Blood Urea Nitrogen 6 MG/DL 6 MG/DL Creatinine 0.92 MG/DL 0.60 MG/DL Random Glucose 91 MG/DL 126 MG/DL Total Protein 7.1 GM/DL 7.2 GM/DL Albumin 3.5 GM/DL 3.5 GM/DL Calcium Level 8.3 MG/DL 8.8 MG/DL Alkaline Phosphatase 97 U/L 99 U/L Aspartate Amino Transf (AST/SGOT) 21 U/L 21 U/L Alanine Aminotransferase (ALT/SGPT) 23 U/L 18 U/L Total Bilirubin 0.3 MG/DL 0.8 MG/DL Sodium Level 128 MEQ/L 126 MEQ/L Potassium Level 3.7 MEQ/L 3.8 MEQ/L Chloride Level 93 MEQ/L 93 MEQ/L Carbon Dioxide Level 27.8 MEQ/L 23.6 MEQ/L Anion Gap 7 MEQ/L 9 MEQ/L Estimat Glomerular Filtration Rate 61 ML/MIN 100 ML/MIN Urine Color LIGHT-YELLOW Urine Turbidity HAZY Urine pH 5.0 Urine Specific [place] 1.008 Urine Protein NEG mg/dL Urine Glucose (UA) NEG mg/dL Urine Ketones NEG mg/dL Urine Occult Blood NEG Urine Nitrite NEG Urine Bilirubin NEG Urine Urobilinogen LESS THAN 2.0 MG/DL Urine Leukocyte Esterase LARGE Urine RBC 2 /hpf Urine WBC 71 /hpf Urine WBC Clumps MOD Urine Squamous Epithelial Cells 1 /hpf Urine Amorphous Sediment RARE Urine Bacteria OCC /hpf Microscopic Urinalysis Comment CULTURE INDICATED Test 04/05/17 08:30 White Blood Count 6.2 TH/MM3 Red Blood Count 3.82 MIL/MM3 Hemoglobin 13.0 GM/DL Hematocrit 37.4 % Mean Corpuscular Volume 97.8 FL Mean Corpuscular Hemoglobin 34.2 PG Mean Corpuscular Hemoglobin Concent 34.9 % Red Cell Distribution Width 14.3 % Platelet Count 296 TH/MM3 Mean Platelet Volume 6.9 FL Neutrophils (%) (Auto) 72.1 % Lymphocytes (%) (Auto) 12.5 % Monocytes (%) (Auto) 9.1 % Eosinophils (%) (Auto) 5.6 % Basophils (%) (Auto) 0.7 % Neutrophils # (Auto) 4.5 TH/MM3 Lymphocytes # (Auto) 0.8 TH/MM3 Monocytes # (Auto) 0.6 TH/MM3 Eosinophils # (Auto) 0.3 TH/MM3 Basophils # (Auto) 0.0 TH/MM3 CBC Comment DIFF FINAL Differential Comment Blood Urea Nitrogen 6 MG/DL Creatinine 0.58 MG/DL Random Glucose 91 MG/DL Total Protein 7.0 GM/DL Albumin 3.3 GM/DL Calcium Level 8.7 MG/DL Phosphorus Level 4.3 MG/DL Magnesium Level 2.3 MG/DL Alkaline Phosphatase 88 U/L Aspartate Amino Transf (AST/SGOT) 23 U/L Alanine Aminotransferase (ALT/SGPT) 17 U/L Total Bilirubin 0.7 MG/DL Sodium Level 133 MEQ/L Potassium Level 3.6 MEQ/L Chloride Level 98 MEQ/L Carbon Dioxide Level 27.9 MEQ/L Anion Gap 7 MEQ/L Estimat Glomerular Filtration Rate 104 ML/MIN Free Thyroxine 0.90 NG/DL Thyroid Stimulating Hormone 3rd Gen 4.690 uIU/ML Imaging Last Impressions Foot X-Ray 04/03/17 580 Signed Impressions: Service Date/Time: Monday, April 03, 2017 19:36 - CONCLUSION: 1. Soft tissue swelling and degenerative changes involving the first metatarsal-phalangeal joint. Devon Leavitt MD Objective Remarks GENERAL: Awake alert oriented 3 talkative and cooperative quite anxious SKIN: Warm and dry. Right great toe and area distal to it with tenderness swelling and erythema warmth still appears quite angry still with swelling and erythema and tenderness and warmth HEAD: Atraumatic. Normocephalic. EYES: Pupils equal and round. No scleral icterus. No injection or drainage. Extractor muscles intact glasses ENT: No nasal bleeding or discharge. Mucous membranes pink and moist. Tongue is midline NECK: Trachea midline. No JVD. Supple CARDIOVASCULAR: Regular rate and rhythm. S1 and S2 no S3 or S4 RESPIRATORY: No accessory muscle use. Clear to auscultation. Breath sounds equal bilaterally. GASTROINTESTINAL: Abdomen soft, non-tender, nondistended. Hepatic and splenic margins not palpable. MUSCULOSKELETAL: Extremities without clubbing, cyanosis, or edema. No obvious deformities. Right great toe with area distal to it with erythema and tenderness warmth and swelling NEUROLOGICAL: Awake and alert. No obvious cranial nerve deficits. Motor grossly within normal limits. Five out of 5 muscle strength in the arms and legs. Normal speech. PSYCHIATRIC: Appropriate mood and affect; insight and judgment normal. White anxious Procedures NONE Medications and IVs Current Medications Ketorolac Tromethamine (Toradol Inj) 30 mg ONCE ONCE IVP Last administered on 04/03/17at 19:18; Start 04/03/17 at 19:00; Stop 04/03/17 at 19:02; Status DC Piperacillin Sod/ Tazobactam Sod 100 ml @ 200 mls/hr ONCE ONCE IV Last administered on 04/03/17 19:18; Start 04/03/17 at 19:00; Stop 04/03/17 at 19:29; Status DC Vancomycin HCl 1000 mg/Sodium Chloride 250 ml @ 250 mls/hr ONCE ONCE IV Last administered on 04/03/17at 19:18; Start 04/03/17 at 19:00; Stop 04/03/17 at 19:59; Status DC Pharmacy Profile Note 0 ml @ 0 mls/hr UNSCH OTHER ; Start 04/03/17 at 22:00 Cefepime HCl 1000 mg/Sodium Chloride 100 ml @ 200 mls/hr Q12H IV Last administered on 04/05/17at 10:38; Start 04/04/17 at 09:00 Sodium Chloride (NS Flush) 2 ml UNSCH PRN IV FLUSH FLUSH AFTER USING IV ACCESS ; Start 04/03/17 at 22:00 Sodium Chloride (NS Flush) 2 ml BID IV FLUSH Last administered on 04/05/17at 10: 39; Start 04/04/17 at 09:00 Ondansetron HCl (Zofran Inj) 4 mg Q6H PRN IVP NAUSEA OR VOMITING; Start at 22:00 Acetaminophen (Tylenol) 650 mg Q6H PRN PO FEVER/PAIN SCALE 1 TO 2; Start at 22:00 Acetaminophen/ Hydrocodone Bitart ([place] 5-325 Mg) 1 tab Q4H PRN PO PAIN SCALE 3 TO 5; Start 04/03/17 at 22:00 Morphine Sulfate (Morphine Inj) 2 mg Q3H PRN IV PUSH Pain 6-10 Last administered on 04/04/17at 17:18; Start 04/03/17 at 22:00 Senna/Docusate Sodium (Rachel-Colace) 1 tab BID PO Last administered on at 10:39; Start 04/04/17 at 09:00 Magnesium Hydroxide (Milk Of Magnesia Liq) 30 ml Q12H PRN PO Mild constipation ; Start 04/03/17 at 22:00 Sennosides (Senokot) 17.2 mg Q12H PRN PO Moderate constipation; Start 04/03/17 at 22:00 Bisacodyl (Dulcolax Supp) 10 mg DAILY PRN RECTAL SEVERE CONSITIPATION; Start at 22:00 Lactulose (Lactulose Liq) 30 ml DAILY PRN PO SEVERE CONSITIPATION; Start at 22:00 Vancomycin HCl 750 mg/Sodium Chloride 257.5 ml @ 250 mls/hr ONCE ONCE IV Last administered on 04/04/17at 00:53; Start 04/03/17 at 23:00; Stop 04/04/17 at 00:01; Status DC Melatonin (Melatonin) 10 mg HS PRN PO SLEEP Last administered on 04/04/17at 01: 12; Start 04/03/17 at 23:45 Folic Acid (Folate) 1 mg DAILY PO Last administered on 04/05/17at 10:39; Start 04/04/17 at 09:00; Stop 04/09/17 at 08:59 Thiamine HCl (Vitamin B1) 100 mg DAILY PO Last administered on 04/05/17at 10:38 ; Start 04/04/17 at 09:00 Multivitamins/ Minerals Therapeutic (Theragran M Tab) 1 tab DAILY PO Last administered on 04/05/17at 10:39; Start 04/04/17 at 09:00; Stop 04/09/17 at 08:59 Flumazenil (Romazicon Inj) 0.2 mg Q1M PRN IV PUSH SEE LABEL COMMENTS; Start 12/10 at 01:00 Lorazepam (Ativan) 1 mg Q4H PRN PO CIWA 8 - 10; Start 04/04/17 at 01:00 Lorazepam (Ativan Inj) 1 mg Q4H PRN IV PUSH CIWA 8 - 10; Start 04/04/17 at 01: 00 Lorazepam (Ativan) 2 mg Q2H PRN PO CIWA 11-14; Start 04/04/17 at 01:00 Lorazepam (Ativan Inj) 2 mg Q2H PRN IV PUSH CIWA 11-14; Start 04/04/17 at 01:00 Lorazepam (Ativan Inj) 2 mg Q1H PRN IV PUSH CIWA 15-20; Start 04/04/17 at 01:00 Lorazepam (Ativan Inj) 2 mg Q15M PRN IV PUSH CIWA > 20; Start 04/04/17 at 01:00 Lorazepam (Ativan) 0.5 mg ONCE ONCE PO Last administered on 04/04/17at 11:16; Start 04/04/17 at 10:45; Stop 04/04/17 at 11:07; Status DC Vancomycin HCl 1250 mg/Sodium Chloride 262.5 ml @ 250 mls/hr Q24H IV Last administered on 04/05/17at 04:18; Start 04/05/17 at 01:00 Miscellaneous Information SPECIFIC LAB TO BE GELA... ONCE ONCE .XX ; Start 04/07 at 00:45; Stop 04/07/17 at 00:46 Sodium Chloride (Sodium Chloride) 1 gm TID PO Last administered on 04/05/17at 11 :27; Start 04/04/17 at 18:00 Levothyroxine Sodium (Synthroid) 25 mcg ONCE ONCE PO ; Start 04/05/17 at 12:30 ; Stop 04/05/17 at 12:31; Status DC Levothyroxine Sodium (Synthroid) 25 mcg DAILY@0600 PO ; Start 04/06/17 at 06:00 A/P Problem List: (1) S/P bunionectomy ICD Code: Z98.890 - Other specified postprocedural states (2) Cellulitis of great toe, right ICD Code: L03.031 - Cellulitis of right toe Status: Acute (3) Hyponatremia ICD Code: E87.1 - Hypo-osmolality and hyponatremia Assessment and Plan 1. S/p Bunionectomy: s/p surgical intervention 03/25/[address] Dunn, uncomplicated post-op course until now. Analgesics/antiemetics as needed. 2. Right Foot Infection: post-op surgical infection, low-grade temp, WBC normal however elevated neutrophil count. Foot X-ray was soft tissue swelling, images reviewed by me. S/p eval by Dr. Conn w/ Podiatry, recommendation for antibiotics and observation, no surgical intervention planned at this time, will re-eval in am. Continue w/ IV Abx. Follow up Blood/Wound Cultures. SUSPECTED STAPH INFECTION- AWAIT SENSITIVITIES 3. Hyponatremia: IMPROVING ON FLUID AND NACL TABLETS. IVF for hydration, check U/a to eval for possible underlying UTI. --UTI IS POSITIVE - Repeat labs in am for trend. Will give salt tabs since trending down Positive UTI continue on current medications which should treat it HYPOTHYROIDISM START SYNTHROID 25 MCG PO DAILY 4. DVT Prophylaxis: Mechanical contraindication secondary to wound 5. Social work for d/c planning as needed. Discharge Planning Remains on vancomycin cefepime Has cellulitis of the right foot and urinary tract infection Not cleared for discharge AWAIT SENSITIVITIES AM LABS Chalo Jasso DO Apr 05, 2017 12:39
[2017-04-05 13:06] LABS: HEMOGLOBIN A1C 5.7 % (4.3-6.0)
--- NOTE | 2017-04-05 15:03 | HHI.PR ---
Subjective Remarks Patient seen bedside this afternoon as well as yesterday evening. Reports decrease in pain. States she has increased edema and erythema. 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 Objective Vital Signs Date Time Temp Pulse Resp B/P (MAP) Pulse Ox O2 Delivery O2 Flow Rate FiO2 04/05/17 12:14 98.2 70 18 160/80 (106) 98 04/05/17 03:57 98.1 66 18 135/62 (86) 94 04/04/17 23:28 97.9 78 18 130/71 (90) 98 04/04/17 20:37 98.6 78 18 144/65 (91) 99 04/04/17 17:23 20 04/04/17 16:00 98.2 90 20 120/60 (80) 97 I/O 04/04/17 04/04/17 04/04/17 04/05/17 04/05/17 04/05/17 07:00 15:00 23:00 07:00 15:00 23:00 Intake Total 737.5 ml Balance 737.5 ml Intake Oral 480 ml IV Total 257.5 ml # Voids 2 1 # Bowel Movements 1 Result Diagram: 04/05/17 0830 04/05/17 0830 Imaging Last Impressions Foot X-Ray 04/03/171854 Signed Impressions: Service Date/Time: Monday, April 03, 2017 19:36 - CONCLUSION: 1. Soft tissue swelling and degenerative changes involving the first metatarsal-phalangeal joint. Devon Leavitt MD Other Results Microbiology Date/Time Source Procedure Growth Status 04/03/17 18:50 Blood Peripheral Aerobic Blood Culture - Preliminary NO GROWTH IN 2 DAYS Resulted 04/03/17 18:50 Blood Peripheral Anaerobic Blood Culture - Preliminary NO GROWTH IN 2 DAYS Resulted 04/04/17 00:15 Urine Clean Catch Urine Culture - Preliminary NO GROWTH IN 24 HOURS. Resulted 04/03/17 21:34 Wound Toe Gram Stain - Final Complete 04/03/17 21:34 Wound Culture - Final Staphylococcus Aureus Complete Objective Remarks Vascular: DP PT 2/4. Capillary refill time under 3 seconds x5 digits to the right foot. Increased edema noted to right foot. Neuro: Gross sensation intact. No decrease in pinpoint sensation. Derm: Increased erythema noted to right dorsal first metatarsal at the incision. Increase seropurulent drainage noted to the incision line. Erythema increased to medial arch as well however there is no ascending erythema noted into the more proximal mid foot or ankle. Sutures intact skin well coapted. Erythema and edema not resolving. MSK. Range of motion to first metatarsophalangeal joint diminished with pain on range of motion. Pain on palpation to right medial foot. Negative pain on calf squeeze right lower extremity. Medications and IVs Current Medications Medications (Trade) Dose Ordered Sig/Sterling Route Start Time Stop Time Status Last Admin Pharmacy Profile Note 0 ml @ 0 mls/hr UNSCH OTHER 04/03/17 22:00 (NS Flush) 2 ml UNSCH PRN IV FLUSH 04/03/17 22:00 (NS Flush) 2 ml BID IV FLUSH 04/04/17 09:00 04/05/17 10:39 (Zofran Inj) 4 mg Q6H PRN IVP 04/03/17 22:00 (Tylenol) 650 mg Q6H PRN PO 04/03/17 22:00 ([place] 5-325 Mg) 1 tab Q4H PRN PO 04/03/17 22:00 (Morphine Inj) 2 mg Q3H PRN IV PUSH 04/03/17 22:00 04/04/17 17:18 (Rachel-Colace) 1 tab BID PO 04/04/17 09:00 04/05/17 10:39 (Milk Of Magnesia Liq) 30 ml Q12H PRN PO 04/03/17 22:00 (Senokot) 17.2 mg Q12H PRN PO 04/03/17 22:00 (Dulcolax Supp) 10 mg DAILY PRN RECTAL 04/03/17 22:00 (Lactulose Liq) 30 ml DAILY PRN PO 04/03/17 22:00 (Melatonin) 10 mg HS PRN PO 04/03/17 23:45 04/04/17 01:12 (Folate) 1 mg DAILY PO 04/04/17 09:00 04/09/17 08:59 04/05/17 10:39 (Vitamin B1) 100 mg DAILY PO 04/04/17 09:00 04/05/17 10:38 (Theragran M Tab) 1 tab DAILY PO 2/10/18 09:00 04/09/17 08:59 04/05/17 10:39 (Romazicon Inj) 0.2 mg Q1M PRN IV PUSH 04/04/17 01:00 (Ativan) 1 mg Q4H PRN PO 04/04/17 01:00 (Ativan Inj) 1 mg Q4H PRN IV PUSH 04/04/17 01:00 (Ativan) 2 mg Q2H PRN PO 04/04/17 01:00 (Ativan Inj) 2 mg Q2H PRN IV PUSH 04/04/17 01:00 (Ativan Inj) 2 mg Q1H PRN IV PUSH 04/04/17 01:00 (Ativan Inj) 2 mg Q15M PRN IV PUSH 04/04/17 01:00 Vancomycin HCl 1250 mg/Sodium Chloride 262.5 ml @ 250 mls/hr Q24H IV 04/05/17 01:00 04/05/17 04:18 Miscellaneous Information SPECIFIC LAB TO BE GELA... ONCE ONCE .XX 04/07/17 00:45 04/07/17 00:46 (Sodium Chloride) 1 gm TID PO 04/04/17 18:00 04/05/17 11:27 (Synthroid) 25 mcg DAILY@0600 PO 04/06/17 06:00 Cefepime HCl 2000 mg/Sodium Chloride 100 ml @ 200 mls/hr Q12H IV 04/05/17 21:00 Assessment and Plan Assessment and Plan 66-year-old female status post bunionectomy with surgical site infection Patient examined and evaluated with all questions answers Patient not improving on IV antibiotics therefore will proceed with incision and drainage of right first metatarsal Will obtain OR cultures as well as bone biopsy Dry sterile dressing placed to incision site Weight-bearing as tolerated to right foot Consent to read right foot incision and drainage with bone biopsy and any other indicated procedures Patient to remain n.p.o. Anticipate DC 2-3 days. Lou Lowry DPM Apr 05, 2017 15:03
--- NOTE | 2017-04-05 15:16 | HHI.PR ---
Subjective Remarks Patient seen bedside 04/04 in the evening no improvement noted to right foot however no ascending erythema noted. Denies nausea vomiting fevers and chills and states the right foot is feeling better. Discussed pain medications for patient with nurse. Objective Vital Signs Date Time Temp Pulse Resp B/P (MAP) Pulse Ox O2 Delivery O2 Flow Rate FiO2 04/05/17 12:14 98.2 70 18 160/80 (106) 98 04/05/17 03:57 98.1 66 18 135/62 (86) 94 04/04/17 23:28 97.9 78 18 130/71 (90) 98 04/04/17 20:37 98.6 78 18 144/65 (91) 99 04/04/17 17:23 20 04/04/17 16:00 98.2 90 20 120/60 (80) 97 I/O 04/04/17 04/04/17 04/04/17 04/05/17 04/05/17 04/05/17 07:00 15:00 23:00 07:00 15:00 23:00 Intake Total 737.5 ml Balance 737.5 ml Intake Oral 480 ml IV Total 257.5 ml # Voids 2 1 # Bowel Movements 1 Result Diagram: 04/05/17 0830 04/05/17 0830 Imaging Last Impressions Foot X-Ray 04/03/171854 Signed Impressions: Service Date/Time: Monday, April 03, 2017 19:36 - CONCLUSION: 1. Soft tissue swelling and degenerative changes involving the first metatarsal-phalangeal joint. Devon Leavitt MD Other Results Last Impressions Foot X-Ray 04/03/171854 Signed Impressions: Service Date/Time: Monday, April 03, 2017 19:36 - CONCLUSION: 1. Soft tissue swelling and degenerative changes involving the first metatarsal-phalangeal joint. Devon Leavitt MD Objective Remarks No change to exam since patient evaluated 04/03 in the evening Vascular: DP PT 2/4. Capillary refill time under 3 seconds x5 digits to the right foot. Increased edema noted to right foot. Neuro: Gross sensation intact. No decrease in pinpoint sensation. Derm: Increased erythema noted to right dorsal first metatarsal at the incision. Seropurulent drainage noted to the incision line. Erythema increased to medial arch as well however there is no ascending erythema noted into the more proximal mid foot or ankle. Sutures intact skin well coapted. Erythema and edema not resolving. MSK. Range of motion to first metatarsophalangeal joint diminished with pain on range of motion. Pain on palpation to right medial foot. Negative pain on calf squeeze right lower extremity. Medications and IVs Current Medications Medications (Trade) Dose Ordered Sig/Sterling Route Start Time Stop Time Status Last Admin Pharmacy Profile Note 0 ml @ 0 mls/hr UNSCH OTHER 04/03/17 22:00 (NS Flush) 2 ml UNSCH PRN IV FLUSH 04/03/17 22:00 (NS Flush) 2 ml BID IV FLUSH 04/04/17 09:00 04/05/17 10:39 (Zofran Inj) 4 mg Q6H PRN IVP 04/03/17 22:00 (Tylenol) 650 mg Q6H PRN PO 04/03/17 22:00 ([place] 5-325 Mg) 1 tab Q4H PRN PO 04/03/17 22:00 (Morphine Inj) 2 mg Q3H PRN IV PUSH 04/03/17 22:00 04/04/17 17:18 (Rachel-Colace) 1 tab BID PO 04/04/17 09:00 04/05/17 10:39 (Milk Of Magnesia Liq) 30 ml Q12H PRN PO 04/03/17 22:00 (Senokot) 17.2 mg Q12H PRN PO 04/03/17 22:00 (Dulcolax Supp) 10 mg DAILY PRN RECTAL 04/03/17 22:00 (Lactulose Liq) 30 ml DAILY PRN PO 04/03/17 22:00 (Melatonin) 10 mg HS PRN PO 04/03/17 23:45 04/04/17 01:12 (Folate) 1 mg DAILY PO 04/04/17 09:00 04/09/17 08:59 04/05/17 10:39 (Vitamin B1) 100 mg DAILY PO 04/04/17 09:00 04/05/17 10:38 (Theragran M Tab) 1 tab DAILY PO 04/04/17 09:00 04/09/17 08:59 04/05/17 10:39 (Romazicon Inj) 0.2 mg Q1M PRN IV PUSH 04/04/17 01:00 (Ativan) 1 mg Q4H PRN PO 04/04/17 01:00 (Ativan Inj) 1 mg Q4H PRN IV PUSH 04/04/17 01:00 (Ativan) 2 mg Q2H PRN PO 04/04/17 01:00 (Ativan Inj) 2 mg Q2H PRN IV PUSH 04/04/17 01:00 (Ativan Inj) 2 mg Q1H PRN IV PUSH 04/04/17 01:00 (Ativan Inj) 2 mg Q15M PRN IV PUSH 04/04/17 01:00 Vancomycin HCl 1250 mg/Sodium Chloride 262.5 ml @ 250 mls/hr Q24H IV 04/05/17 01:00 04/05/17 04:18 Miscellaneous Information SPECIFIC LAB TO BE GELA... ONCE ONCE .XX 04/07/17 00:45 04/07/17 00:46 (Sodium Chloride) 1 gm TID PO 04/04/17 18:00 04/05/17 11:27 (Synthroid) 25 mcg DAILY@0600 PO 04/06/17 06:00 Cefepime HCl 2000 mg/Sodium Chloride 100 ml @ 200 mls/hr Q12H IV 04/05/17 21:00 Assessment and Plan Assessment and Plan 66-year-old female status post bunionectomy with surgical site infection Patient examined and evaluated with all questions answers We will evaluate patient in a.m. and decide whether or not incision and drainage will be necessary Discussed with patient possible incision and drainage to right foot Continue IV antibiotics Wound cultures pending Lou Lowry DPM Apr 05, 2017 15:15
--- NOTE | 2017-04-05 15:33 | PD.ID.CON ---
History of Present Illness Service Infectious disease Consult Requested By Primary Care Physician Jonny Honeycutt M.D. Diagnoses: History of Present Illness Ms. Fitzgerald is a 66-year-old female with past medical history significant for breast cancer. Patient reportedly had a bunionectomy on March 07, [address] Dunn. Patient presented to the emergency room and she notices increased redness and swelling to the right foot. Patient reports that she completed a course of prophylactic antibiotics. Patient was seen in the office yesterday by her surgeon at which point and there were no signs of infection. She then noticed a rapid spread of redness and swelling and therefore she presented to the emergency department. She reports fevers and chills and states her pain is sharp. An x-ray of the foot was done which shows soft tissue swelling. Dr. Lowry podiatry surgeon has seen the patient and patient is currently nothing by mouth for possible debridement of this site. Infectious disease is consulted for evaluation and management of the surgical site. Review of Systems Constitutional: DENIES: Diaphoretic episodes, Fatigue, Fever, Weight gain, Weight loss, Chills, Dizziness, Change in appetite, Night Sweats Endocrine: DENIES: Abnorml menstrual pattern, Heat/cold intolerance, Polydipsia , Polyuria, Polyphagia Eyes: DENIES: Blurred vision, Diplopia, Eye inflammation, Eye pain, Vision loss , Photosensitivity, Double Vision Ears, nose, mouth, throat: DENIES: Tinnitus, Hearing loss, Vertigo, Nasal discharge, Oral lesions, Throat pain, Hoarseness, Ear Pain, Running Nose, Epistaxis, Sinus Pain, Toothache, Odynophagia Respiratory: DENIES: Apneas, Cough, Snoring, Wheezing, Hemoptysis, Sputum production, Shortness of breath Cardiovascular: DENIES: Chest pain, Palpitations, Syncope, Dyspnea on Exertion , PND, Lower Extremity Edema, Orthopnea, Claudication Gastrointestinal: DENIES: Abdominal pain, Black stools, Bloody stools, Constipation, Diarrhea, Nausea, Vomiting, Difficulty Swallowing, Anorexia Genitourinary: DENIES: Abnormal vaginal bleeding, Dysmenorrhea, Dyspareunia, Sexual dysfunction, Urinary frequency, Urinary incontinence, Urgency, Hematuria , Dysuria, Nocturia, Vaginal discharge Musculoskeletal: COMPLAINS OF: Joint pain, Joint Swelling, DENIES: Muscle aches , Stiffness, Back pain, Neck pain Integumentary: COMPLAINS OF: Abnormal pigmentation, DENIES: Pruritus, Rash, Nail changes, Breast masses, Breast skin changes, Nipple discharge Hematologic/lymphatic: DENIES: Bruising, Lymphadenopathy Immunologic/allergic: DENIES: Eczema, Urticaria Neurologic: DENIES: Abnormal gait, Headache, Localized weakness, Paresthesias, Seizures, Speech Problems, Tremor, Poor Balance Psychiatric: DENIES: Anxiety, Confusion, Mood changes, Depression, Hallucinations, Agitation, Suicidal Ideation, Homicidal Ideation, Delusions Except as stated in HPI: all other systems reviewed are Neg Past Family Social History Allergies: Coded Allergies: pentazocine (Verified Allergy, Unknown, 04/03/17) Past Medical History Breast CA Past Surgical History Lumpectomy, Bilateral Hip Replacement with hardware in place, Right Shoulder Surgery with hardware in place Hysterectomy Reported Medications Reported Meds & Active Scripts Active Reported Tramadol (Tramadol HCl) 50 Mg Tab 50 Mg PO Q6H PRN Advil Pm (Ibuprofen-Diphenhydramine) 200-38 Mg Tab 1 Tab PO HS PRN Melatonin 10 Mg Tab 10 Mg PO HS PRN Active Ordered Medications Current Medications Medications (Trade) Dose Ordered Sig/Sterling Route Start Time Stop Time Status Last Admin Pharmacy Profile Note 0 ml @ 0 mls/hr UNSCH OTHER 04/03/17 22:00 (NS Flush) 2 ml UNSCH PRN IV FLUSH 04/03/17 22:00 (NS Flush) 2 ml BID IV FLUSH 04/04/17 09:00 04/05/17 10:39 (Zofran Inj) 4 mg Q6H PRN IVP 04/03/17 22:00 (Tylenol) 650 mg Q6H PRN PO 04/03/17 22:00 ([place] 5-325 Mg) 1 tab Q4H PRN PO 04/03/17 22:00 (Morphine Inj) 2 mg Q3H PRN IV PUSH 04/03/17 22:00 04/04/17 17:18 (Rachel-Colace) 1 tab BID PO 04/04/17 09:00 04/05/17 10:39 (Milk Of Magnesia Liq) 30 ml Q12H PRN PO 04/03/17 22:00 (Senokot) 17.2 mg Q12H PRN PO 04/03/17 22:00 (Dulcolax Supp) 10 mg DAILY PRN RECTAL 04/03/17 22:00 (Lactulose Liq) 30 ml DAILY PRN PO 04/03/17 22:00 (Melatonin) 10 mg HS PRN PO 04/03/17 23:45 04/04/17 01:12 (Folate) 1 mg DAILY PO 04/04/17 09:00 04/09/17 08:59 04/05/17 10:39 (Vitamin B1) 100 mg DAILY PO 04/04/17 09:00 04/05/17 10:38 (Theragran M Tab) 1 tab DAILY PO 04/04/17 09:00 04/09/17 08:59 04/05/17 10:39 (Romazicon Inj) 0.2 mg Q1M PRN IV PUSH 04/04/17 01:00 (Ativan) 1 mg Q4H PRN PO 04/04/17 01:00 04/05/17 16:59 (Ativan Inj) 1 mg Q4H PRN IV PUSH 04/04/17 01:00 (Ativan) 2 mg Q2H PRN PO 04/04/17 01:00 (Ativan Inj) 2 mg Q2H PRN IV PUSH 04/04/17 01:00 (Ativan Inj) 2 mg Q1H PRN IV PUSH 04/04/17 01:00 (Ativan Inj) 2 mg Q15M PRN IV PUSH 04/04/17 01:00 Vancomycin HCl 1250 mg/Sodium Chloride 262.5 ml @ 250 mls/hr Q24H IV 04/05/17 01:00 04/05/17 04:18 Miscellaneous Information SPECIFIC LAB TO BE ... ONCE ONCE .XX 04/07/17 00:45 04/07/17 00:46 (Sodium Chloride) 1 gm TID PO 04/04/17 18:00 04/05/17 15:25 (Synthroid) 25 mcg DAILY@0600 PO 04/06/17 06:00 Cefepime HCl 2000 mg/Sodium Chloride 100 ml @ 200 mls/hr Q12H IV 04/05/17 21:00 Family History Reviewed and Noncontributory to current infectious disease problem. Social History Lives at home with her . Negative for tobacco or drugs drinks 2-3 beers per day Physical Exam Vital Signs Vital Signs Date Time Temp Pulse Resp B/P (MAP) Pulse Ox O2 Delivery O2 Flow Rate FiO2 04/05/17 12:14 98.2 70 18 160/80 (106) 98 04/05/17 03:57 98.1 66 18 135/62 (86) 94 04/04/17 23:28 97.9 78 18 130/71 (90) 98 04/04/17 20:37 98.6 78 18 144/65 (91) 99 04/04/17 17:23 20 04/04/17 16:00 98.2 90 20 120/60 (80) 97 Physical Exam GENERAL: This is a well-nourished, well-developed patient, in no apparent distress. SKIN: No rashes, ecchymoses or lesions. Cool and dry. HEAD: Atraumatic. Normocephalic. No temporal or scalp tenderness. EYES: Pupils equal round and reactive. Extraocular motions intact. No scleral icterus. No injection or drainage. ENT: Nose without bleeding, purulent drainage or septal hematoma. Throat without erythema, tonsillar hypertrophy or exudate. Uvula midline. Airway patent. NECK: Trachea midline. Supple, nontender, no meningeal signs. CARDIOVASCULAR: Heart sounds audible. RESPIRATORY: Clear to auscultation. Breath sounds equal bilaterally. No wheezes , rales, or rhonchi. GASTROINTESTINAL: Abdomen soft, non-tender, nondistended. MUSCULOSKELETAL: Right foot with erythema, induration and drainage from the prior surgical site infection. NEUROLOGICAL: Awake and alert. Cranial nerves II through XII intact. Motor and sensory grossly within normal limits. Five out of 5 muscle strength in all muscle groups. Normal speech. Psych cooperative IV line sites with no evidence of infection. Laboratory Laboratory Tests Test 04/05/17 08:30 White Blood Count 6.2 Red Blood Count 3.82 Hemoglobin 13.0 Hematocrit 37.4 Mean Corpuscular Volume 97.8 Mean Corpuscular Hemoglobin 34.2 Mean Corpuscular Hemoglobin Concent 34.9 Red Cell Distribution Width 14.3 Platelet Count 296 Mean Platelet Volume 6.9 Neutrophils (%) (Auto) 72.1 Lymphocytes (%) (Auto) 12.5 Monocytes (%) (Auto) 9.1 Eosinophils (%) (Auto) 5.6 Basophils (%) (Auto) 0.7 Neutrophils # (Auto) 4.5 Lymphocytes # (Auto) 0.8 Monocytes # (Auto) 0.6 Eosinophils # (Auto) 0.3 Basophils # (Auto) 0.0 CBC Comment DIFF FINAL Differential Comment Blood Urea Nitrogen 6 Creatinine 0.58 Random Glucose 91 Total Protein 7.0 Albumin 3.3 Calcium Level 8.7 Phosphorus Level 4.3 Magnesium Level 2.3 Alkaline Phosphatase 88 Aspartate Amino Transf (AST/SGOT) 23 Alanine Aminotransferase (ALT/SGPT) 17 Total Bilirubin 0.7 Sodium Level 133 Potassium Level 3.6 Chloride Level 98 Carbon Dioxide Level 27.9 Anion Gap 7 Estimat Glomerular Filtration Rate 104 Hemoglobin A1c 5.7 Free Thyroxine 0.90 Thyroid Stimulating Hormone 3rd Gen 4.690 Date/Time Source Procedure Growth Status 04/03/17 18:50 Blood Peripheral Aerobic Blood Culture - Preliminary NO GROWTH IN 2 DAYS Resulted 04/03/17 18:50 Blood Peripheral Anaerobic Blood Culture - Preliminary NO GROWTH IN 2 DAYS Resulted 04/04/17 00:15 Urine Clean Catch Urine Culture - Preliminary NO GROWTH IN 24 HOURS. Resulted 04/03/17 21:34 Wound Toe Gram Stain - Final Complete 04/03/17 21:34 Wound Culture - Final Staphylococcus Aureus Complete Result Diagram: 04/05/17 0830 04/05/17 0830 Imaging Last Impressions Chest X-Ray 04/05/17 0000 Signed Impressions: Service Date/Time: Wednesday, April 05, 2017 15:52 - CONCLUSION: The lungs are clear. Right anterior 6th rib fracture. Jefferson Robison MD Foot X-Ray 04/03/17 1855 Signed Impressions: Service Date/Time: Monday, April 03, 2017 19:36 - CONCLUSION: 1. Soft tissue swelling and degenerative changes involving the first metatarsal-phalangeal joint. Devon Leavitt MD Assessment and Plan Assessment and Plan Right foot bunionectomy surgical site infection Staph aureus: Likely MSSA Breast cancer status post lumpectomy Bilateral hip as well as right shoulder status post surgeries hardware in place Recommendations: Continue Cefepime IV Continue vancomycin IV Discussed with Dr. Lowry she will send intraoperative cultures Follow cultures Follow clinically Blessing Sanford MD Apr 05, 2017 15:33
--- NOTE | 2017-04-05 16:05 | RADRPT ---
EXAM DATE/TIME: 04/05/2017 15:52 [facility] COMPARISON: No previous studies available for comparison. INDICATIONS : Preop evaluate for pneumonia pneumothorax or communicable disease. MEDICAL HISTORY : None. SURGICAL HISTORY : None. ENCOUNTER: Subsequent ACUITY: 3 days PAIN SCORE: 0/10 LOCATION: Bilateral chest FINDINGS: PA and lateral views of the chest demonstrate the lungs to be symmetrically aerated without evidence of mass, infiltrate or effusion. No evidence of pneumothorax. The cardiomediastinal contours are un remarkable. Right shoulder arthroplasty. Nondisplaced fracture of the anterior right 6th rib. CONCLUSION: The lungs are clear. Right anterior 6th rib fracture. Jefferson Robison MD on April 05, 2017 at 16:01 Board Certified Radiologist. This report was verified electronically.
[2017-04-05 16:48] VITALS: BP 158/79; PULSE 78; RESP 18; TEMP 98; O2SAT 95
[2017-04-05] MEDS: LORazepam 1 MG TAB PO PRN (16:59)
[2017-04-05 20:00] VITALS: BP 182/77; PULSE 92; RESP 20; TEMP 98.1; O2SAT 100
[2017-04-05] MEDS ORDERED: CHLORHEXIDINE GLUCONATE 2 % 1 PACK (2 CLOTHS) TOPICAL PRN (21:45)
[2017-04-05] MEDS ORDERED: SODIUM CHLORID 0.9% 500 ML IV PRN (21:45)
[2017-04-05] MEDS ORDERED: LACTATED RINGER'S 1000 ML IV PRN (21:45)
[2017-04-05] MEDS: CEFEPIME 2000 MG/NS 100 ML IV SCH ×2 (22:00)
[2017-04-05] MEDS ORDERED: VANCOMYCIN HCL 1000 MG VIAL ONE ×2 (23:10→23:57)
--- NOTE | 2017-04-05 23:13 | HHI.PR ---
Immediate Post Op Note Procedure Date: Apr 05, 2017 Pre Op Diagnosis: Right foot infection Post Op Diagnosis: Right foot infection Surgeon: Lou Lowry Picker And Packer(s): None Procedure: Right foot incision and drainage with bone biopsy Findings: None Additional Information: None Complications: None Specimen(s) removed: Right foot soft tissue for culture Right foot first metatarsal for path Right foot first metatarsal for culture Estimated blood loss: Less than 5 cc Anesthesia: General Drains: None Patient to: PACU Patient Condition: Good Lou Lowry DPM Apr 05, 2017 23:13
[2017-04-05] MEDS ORDERED: Post-op Orders (for Pharmacy) XX ONE (23:15)
[2017-04-05] MEDS ORDERED: NALOXONE HCL 0.4 MG/ML AMP IV PUSH PRN (23:15)
[2017-04-06] MEDS ORDERED: DO NOT ADM ANY ANTICOAGULANT DRUGS PRN (00:28)
[2017-04-06] MEDS: VANCOMYCIN INJ 1,250 MG in SODIUM CHLOR 0.9% 250 ML INJ 250 ML IV SCH (01:18)
[2017-04-06] MEDS: LORazepam 1 MG TAB PO PRN ×5 (01:18→23:11)
[2017-04-06 04:00] VITALS: BP 149/72; PULSE 81; RESP 20; TEMP 98.7; O2SAT 94
[2017-04-06] MEDS: LEVOTHYROXINE SODIUM 25 MCG TAB PO SCH (05:43)
[2017-04-06 07:48] VITALS: BP 138/71; PULSE 80; RESP 14; TEMP 97.1; O2SAT 93
[2017-04-06] MEDS: THIAMINE HCL 100 MG TAB PO SCH (08:53)
[2017-04-06] MEDS: MULTIVITAMINS/MINERALS THERAPEUTIC TAB PO SCH (08:53)
[2017-04-06] MEDS: SODIUM CHLORIDE 1 GRAM TAB PO SCH ×3 (08:53→17:40)
[2017-04-06] MEDS: DOCUSATE SODIUM 50 MG/SENNA 8.6 MG TAB PO SCH ×2 (08:53→21:56)
[2017-04-06] MEDS: FOLIC ACID 1 MG TAB PO SCH (08:53)
[2017-04-06] MEDS: SODIUM CHLORIDE 0.9% FLUSH 10 ML FLUSH IV FLUSH SCH ×2 (08:54→21:57)
[2017-04-06] MEDS: CEFEPIME 2000 MG/NS 100 ML IV SCH ×4 (08:54→21:57)
[2017-04-06] MEDS: ACETAMINOPHEN/HYDROcodone 325 MG/5 MG TAB PO PRN ×4 (08:57→23:11)
[2017-04-06 12:00] VITALS: BP 153/82; PULSE 87; RESP 16; TEMP 98.9; O2SAT 94
--- NOTE | 2017-04-06 13:57 | HHI.PR ---
Subjective Remarks 66F with a left toe cellulitis that occurred a week after bunionectomy. Today she is s/p I&D and bone w/ soft tissue cultures performed 04/05/17. She is doing well, tolerating food, pain controlled, and interested in knowing when she will be going home. Objective Vitals Vital Signs Date Time Temp Pulse Resp B/P (MAP) Pulse Ox O2 Delivery O2 Flow Rate FiO2 04/06/17 12:00 98.9 87 16 153/82 (105) 94 04/06/17 07:48 97.1 80 14 138/71 (93) 93 04/06/17 04:00 98.7 81 20 149/72 (97) 94 04/06/17 00:45 72 15 161/74 (103) 100 Room Air 04/06/17 00:30 98.5 74 14 153/75 (101) 100 Nasal Cannula 3 04/05/17 20:00 98.1 92 20 182/77 (112) 100 04/05/17 16:48 98.0 78 18 158/79 (105) 95 I/O 04/05/17 04/05/17 04/05/17 04/06/17 04/06/17 04/06/17 07:00 15:00 23:00 07:00 15:00 23:00 Intake Total 0 ml 1122 ml Output Total 370 ml Balance 0 ml 752 ml Intake Oral 360 ml IV Total 0 ml 362 ml Other 400 ml Output Urine Total 350 ml Estimated Blood Loss 20 ml # Voids 1 Result Diagram: 04/05/17 0830 04/05/17 0830 Objective Remarks GENERAL: Well-nourished, well-developed patient. HEAD: Normocephalic. EYES: No scleral icterus. No injection or drainage. NECK: Supple, trachea midline. No JVD or lymphadenopathy. CARDIOVASCULAR: Regular rate and rhythm without murmurs, gallops, or rubs. RESPIRATORY: Breath sounds equal bilaterally. No accessory muscle use. GASTROINTESTINAL: Abdomen soft, non-tender, nondistended. EXTREMITIES: Right food in kandy wrap with wound vac in place NEUROLOGICAL: Awake, alert, and oriented x 3. Non-focal. Procedures Right large toe I&D with tissue samples for culture A/P Problem List: (1) S/P bunionectomy ICD Code: Z98.890 - Other specified postprocedural states (2) Cellulitis of great toe, right ICD Code: L03.031 - Cellulitis of right toe Status: Acute (3) Hyponatremia ICD Code: E87.1 - Hypo-osmolality and hyponatremia Assessment and Plan Cellulitis & abscess of Right great toe Recent bunionectomy on 03/25/17 s/p surgical I&D on 04/05/17 bone and soft tissue cultures pending ER wound culture grew out staph aureus, sensitive to most antibiotic choices ( except clindamycin) Continue with Vancomycin IV for now Hyponatremia Improving since admission, now near normal at 133 No change to therapy DVT Prophylaxis SCD hose Discharge Planning Planning for home health discharge once cleared by surgeon Ruben Dela Cruz MD Apr 06, 2017 13:57
--- NOTE | 2017-04-06 17:16 | HHI.IDPN ---
Subjective Subjective Remarks Ms. Fitzgerald is a 66-year-old female with past medical history significant for breast cancer. Patient reportedly had a bunionectomy on March 07, [address] Dunn. Patient presented to the emergency room and she notices increased redness and swelling to the right foot. Patient reports that she completed a course of prophylactic antibiotics. Patient was seen in the office yesterday by her surgeon at which point and there were no signs of infection. She then noticed a rapid spread of redness and swelling and therefore she presented to the emergency department. She reports fevers and chills and states her pain is sharp. An x-ray of the foot was done which shows soft tissue swelling. Dr. Lowry podiatry surgeon has seen the patient and patient is currently nothing by mouth for possible debridement of this site. Infectious disease is consulted for evaluation and management of the surgical site. Overnight events reviewed. Status post irrigation and debridement of the surgical site infection and bone biopsy. Case discussed with podiatry who informs me that there is infection soft tissue infection. No fevers No rash No diarrhea Tolerating IV antibiotics well Antibiotics Cefepime IV Vanco IV Lines Line sites with no evidence of infection. Past Medical History Reviewed. Allergies: Coded Allergies: pentazocine (Verified Allergy, Unknown, 04/03/17) Objective . Vital Signs Date Time Temp Pulse Resp B/P (MAP) Pulse Ox O2 Delivery O2 Flow Rate FiO2 04/06/17 12:00 98.9 87 16 153/82 (105) 94 04/06/17 07:48 97.1 80 14 138/71 (93) 93 04/06/17 04:00 98.7 81 20 149/72 (97) 94 04/06/17 00:45 72 15 161/74 (103) 100 Room Air 04/06/17 00:30 98.5 74 14 153/75 (101) 100 Nasal Cannula 3 04/05/17 20:00 98.1 92 20 182/77 (112) 100 04/06/17 04/06/17 04/07/17 15:00 23:00 07:00 Intake Total 100 ml Balance 100 ml IV Total 100 ml . Laboratory Tests Test 04/05/17 08:30 White Blood Count 6.2 TH/MM3 Red Blood Count 3.82 MIL/MM3 Hemoglobin 13.0 GM/DL Hematocrit 37.4 % Mean Corpuscular Volume 97.8 FL Mean Corpuscular Hemoglobin 34.2 PG Mean Corpuscular Hemoglobin Concent 34.9 % Red Cell Distribution Width 14.3 % Platelet Count 296 TH/MM3 Mean Platelet Volume 6.9 FL Neutrophils (%) (Auto) 72.1 % Lymphocytes (%) (Auto) 12.5 % Monocytes (%) (Auto) 9.1 % Eosinophils (%) (Auto) 5.6 % Basophils (%) (Auto) 0.7 % Neutrophils # (Auto) 4.5 TH/MM3 Lymphocytes # (Auto) 0.8 TH/MM3 Monocytes # (Auto) 0.6 TH/MM3 Eosinophils # (Auto) 0.3 TH/MM3 Basophils # (Auto) 0.0 TH/MM3 CBC Comment DIFF FINAL Differential Comment Laboratory Tests Test 04/05/17 08:30 Blood Urea Nitrogen 6 MG/DL Creatinine 0.58 MG/DL Random Glucose 91 MG/DL Total Protein 7.0 GM/DL Albumin 3.3 GM/DL Calcium Level 8.7 MG/DL Phosphorus Level 4.3 MG/DL Magnesium Level 2.3 MG/DL Alkaline Phosphatase 88 U/L Aspartate Amino Transf (AST/SGOT) 23 U/L Alanine Aminotransferase (ALT/SGPT) 17 U/L Total Bilirubin 0.7 MG/DL Sodium Level 133 MEQ/L Potassium Level 3.6 MEQ/L Chloride Level 98 MEQ/L Carbon Dioxide Level 27.9 MEQ/L Anion Gap 7 MEQ/L Estimat Glomerular Filtration Rate 104 ML/MIN Hemoglobin A1c 5.7 % Free Thyroxine 0.90 NG/DL Thyroid Stimulating Hormone 3rd Gen 4.690 uIU/ML Microbiology Date/Time Source Procedure Growth Status 04/03/17 18:50 Blood Peripheral Aerobic Blood Culture - Preliminary NO GROWTH IN 3 DAYS Resulted 04/03/17 18:50 Blood Peripheral Anaerobic Blood Culture - Preliminary NO GROWTH IN 3 DAYS Resulted 04/03/17 18:17 Blood Peripheral Aerobic Blood Culture - Preliminary NO GROWTH IN 3 DAYS Resulted 04/03/17 18:17 Blood Peripheral Anaerobic Blood Culture - Preliminary NO GROWTH IN 3 DAYS Resulted 04/04/17 00:15 Urine Clean Catch Urine Culture - Final NO GROWTH IN 48 HOURS. Complete 04/05/17 23:45 Abscess Foot Fungal Smear - Final NO FUNGAL ELEMENTS SEEN. Resulted 04/05/17 23:45 Abscess Foot Fungal Culture Pending Resulted 04/05/17 23:45 Abscess Foot Acid Fast Stain Pending Received 04/05/17 23:45 Abscess Foot Mycobacterial Culture Pending Received 04/05/17 23:45 Abscess Foot Gram Stain - Final Resulted 04/05/17 23:45 Abscess Foot Wound Culture Pending Resulted 04/05/17 23:45 Abscess Foot Fungal Smear - Final NO FUNGAL ELEMENTS SEEN. Resulted 04/05/17 23:45 Abscess Foot Fungal Culture Pending Resulted 04/05/17 23:45 Abscess Foot Acid Fast Stain Pending Received 04/05/17 23:45 Abscess Foot Mycobacterial Culture Pending Received 04/05/17 23:45 Abscess Foot Gram Stain - Final Resulted 04/05/17 23:45 Abscess Foot Wound Culture Pending Resulted 04/03/17 21:34 Wound Toe Gram Stain - Final Complete 04/03/17 21:34 Wound Culture - Final Staphylococcus Aureus Complete Imaging Last Impressions Chest X-Ray 04/05/17 0000 Signed Impressions: Service Date/Time: Wednesday, April 05, 2017 15:52 - CONCLUSION: The lungs are clear. Right anterior 6th rib fracture. Jefferson Robison MD Foot X-Ray 04/03/17 1855 Signed Impressions: Service Date/Time: Monday, April 03, 2017 19:36 - CONCLUSION: 1. Soft tissue swelling and degenerative changes involving the first metatarsal-phalangeal joint. Devon Leavitt MD Physical Exam GENERAL: This is a well-nourished, well-developed patient, in no apparent distress. SKIN: No rashes, ecchymoses or lesions. Cool and dry. HEAD: Atraumatic. Normocephalic. No temporal or scalp tenderness. EYES: Pupils equal round and reactive. Extraocular motions intact. No scleral icterus. No injection or drainage. ENT: Nose without bleeding, purulent drainage or septal hematoma. Throat without erythema, tonsillar hypertrophy or exudate. Uvula midline. Airway patent. NECK: Trachea midline. Supple, nontender, no meningeal signs. CARDIOVASCULAR: Heart sounds audible. RESPIRATORY: Clear to auscultation. Breath sounds equal bilaterally. No wheezes , rales, or rhonchi. GASTROINTESTINAL: Abdomen soft, non-tender, nondistended. MUSCULOSKELETAL: Right foot with erythema, induration and drainage from the prior surgical site infection. NEUROLOGICAL: Awake and alert. Cranial nerves II through XII intact. Motor and sensory grossly within normal limits. Five out of 5 muscle strength in all muscle groups. Normal speech. Psych cooperative IV line sites with no evidence of infection. Assessment & Plan Remarks Right foot bunionectomy surgical site infection Staph aureus: Likely MSSA Breast cancer status post lumpectomy Bilateral hip as well as right shoulder status post surgeries hardware in place Recommendations: Continue Cefepime IV Continue Vancomycin IV Discussed with Dr. Lowry she will send intraoperative cultures Follow cultures Follow clinically Blessing Sanford MD Apr 06, 2017 17:16
[2017-04-06 20:00] VITALS: BP 137/65; PULSE 81; RESP 15; TEMP 97.1; O2SAT 95
[2017-04-06] MEDS: MELATONIN 5 MG TAB PO PRN (21:56)
[2017-04-07] VITALS: BP 130/62; PULSE 82; RESP 16; TEMP 97.9; O2SAT 95
[2017-04-07] MEDS ORDERED: PHARMACY ORDERED LAB ONE (00:45)
[2017-04-07] MEDS: VANCOMYCIN INJ 1,250 MG in SODIUM CHLOR 0.9% 250 ML INJ 250 ML IV SCH ×2 (01:20→17:13)
[2017-04-07] MEDS: ACETAMINOPHEN/HYDROcodone 325 MG/5 MG TAB PO PRN ×3 (04:53→22:27)
[2017-04-07] MEDS: LEVOTHYROXINE SODIUM 25 MCG TAB PO SCH (05:42)
[2017-04-07] MEDS: LORazepam 1 MG TAB PO PRN (05:42)
[2017-04-07 08:00] VITALS: BP 139/66; PULSE 73; RESP 16; TEMP 96.8; O2SAT 96
[2017-04-07] MEDS: SODIUM CHLORIDE 1 GRAM TAB PO SCH ×3 (09:15→17:13)
[2017-04-07] MEDS: DOCUSATE SODIUM 50 MG/SENNA 8.6 MG TAB PO SCH ×2 (09:15→22:16)
[2017-04-07] MEDS: FOLIC ACID 1 MG TAB PO SCH (09:15)
[2017-04-07] MEDS: CEFEPIME 2000 MG/NS 100 ML IV SCH ×4 (09:15→22:16)
[2017-04-07] MEDS: MULTIVITAMINS/MINERALS THERAPEUTIC TAB PO SCH (09:15)
[2017-04-07] MEDS: THIAMINE HCL 100 MG TAB PO SCH (09:15)
[2017-04-07] MEDS: SODIUM CHLORIDE 0.9% FLUSH 10 ML FLUSH IV FLUSH SCH ×2 (09:16→22:17)
--- NOTE | 2017-04-07 11:43 | HHI.PR ---
Subjective Remarks Patient has no new complaints, only some moderate pain and she is due for a pain pill. She understands we are awaiting results from the surgical cultures before we can determine outpatient treatment options. Objective Vitals Vital Signs Date Time Temp Pulse Resp B/P (MAP) Pulse Ox O2 Delivery O2 Flow Rate FiO2 04/07/17 08:00 96.8 73 16 139/66 (90) 96 04/07/17 00:00 97.9 82 16 130/62 (84) 95 04/06/17 20:00 97.1 81 15 137/65 (89) 95 04/06/17 12:00 98.9 87 16 153/82 (105) 94 I/O 04/06/17 04/06/17 04/06/17 04/07/17 04/07/17 04/07/17 07:00 15:00 23:00 07:00 15:00 23:00 Intake Total 1122 ml 100 ml 740 ml 53095 ml Output Total 370 ml 0 ml Balance 752 ml 100 ml 740 ml 01350 ml Intake Oral 360 ml 640 ml 200 ml IV Total 362 ml 100 ml 100 ml 79408 ml Other 400 ml Output Urine Total 350 ml Drainage Total 0 ml Estimated Blood Loss 20 ml # Voids 4 2 # Bowel Movements 0 0 Result Diagram: 04/05/1730 04/05/17 0830 Objective Remarks GENERAL: Well-nourished, well-developed patient. HEAD: Normocephalic. EYES: No scleral icterus. No injection or drainage. NECK: Supple, trachea midline. No JVD or lymphadenopathy. CARDIOVASCULAR: Regular rate and rhythm without murmurs, gallops, or rubs. RESPIRATORY: Breath sounds equal bilaterally. No accessory muscle use. GASTROINTESTINAL: Abdomen soft, non-tender, nondistended. EXTREMITIES: Right food in kandy wrap with wound vac in place NEUROLOGICAL: Awake, alert, and oriented x 3. Non-focal. Procedures Right large toe I&D with tissue samples for culture A/P Problem List: (1) S/P bunionectomy ICD Code: Z98.890 - Other specified postprocedural states (2) Cellulitis of great toe, right ICD Code: L03.031 - Cellulitis of right toe Status: Acute (3) Hyponatremia ICD Code: E87.1 - Hypo-osmolality and hyponatremia Assessment and Plan Cellulitis & abscess of Right great toe Recent bunionectomy on 03/25/17 s/p surgical I&D on 04/05/17 Surgical cultures pending ER wound culture grew out staph aureus, sensitive to most antibiotic choices ( except clindamycin) Continue with Vancomycin IV for now Hyponatremia Nearing normal Recheck sodium level tomorrow DVT Prophylaxis SCD hose Discharge Planning Planning for home health discharge once cleared by surgeon Ruben Dela Cruz MD Apr 07, 2017 11:43
[2017-04-07 12:00] VITALS: BP 136/69; PULSE 77; RESP 18; TEMP 97.3; O2SAT 97
[2017-04-07] MEDS ORDERED: Vancomycin Consult Pharmacy 1 EA OTHER SCH (12:30)
--- NOTE | 2017-04-07 16:39 | HHI.FF ---
Face to Face Verification Diagnosis: (1) Cellulitis of great toe, right Home Health Nursing Order: Wound care and dressing changes (M/W/F VAC with santyl) I have seen patient Leticia Oliva on 04/07/17. My clinical findings support the need for the requested home health care services because: High risk of falls Infection w/ risk of complications I certify that my clinical findings support that this patient is homebound because: Post-op weakness Unsteady gait/balance Unsafe to leave home unassisted Claudia Bains DPM Apr 07, 2017 16:39
--- NOTE | 2017-04-07 16:43 | PD.POD ---
Subjective Podiatric Problems s/p right bunionectomy with , subsequent incision dehisence and wound infection. s/p I&D with bone biopsy on 04/04 with . Pt states the foot is sore, but no worse then before. Pain score: 3 Past Med/Surg/Social History Social History Smoking Status: Former Smoker Objective Vital Signs Vital Signs Date Time Temp Pulse Resp B/P (MAP) Pulse Ox O2 Delivery O2 Flow Rate FiO2 04/07/17 12:00 97.3 77 18 136/69 (91) 97 04/07/17 08:00 96.8 73 16 139/66 (90) 96 04/07/17 00:00 97.9 82 16 130/62 (84) 95 04/06/17 20:00 97.1 81 15 137/65 (89) 95 Coded Allergies: pentazocine (Verified Allergy, Unknown, 04/03/17) Exam-Podiatry Remarks Derm: Right dorsal first MPJ ulcer 6cm x 2cm x 0.5cm mixed fibrogranular tissue , mild naseem wound erythema, mild serosanginous drainage Assessment & Plan A/P 1) right foot ulceration with resolving cellulitis and questionable OM -surgical cultures pending -ID following -santyl and wound VAC M/W/F, paperwork on chart, face to face completed -WBAT in surgical shoe -ok to d/c from podiatry standpoint once abx can be determined and vac/hhc can be arranged -f/u with 5 days after d/c Claudia Bains DPM Apr 07, 2017 16:43
[2017-04-07 20:00] VITALS: BP 163/86; PULSE 98; RESP 17; TEMP 96.5; O2SAT 98
[2017-04-07] MEDS: MELATONIN 5 MG TAB PO PRN (22:17)
[2017-04-08] VITALS: BP 145/73; PULSE 70; RESP 17; TEMP 96.7; O2SAT 96
[2017-04-08] MEDS: LEVOTHYROXINE SODIUM 25 MCG TAB PO SCH (06:36)
[2017-04-08 08:00] VITALS: BP 154/97; PULSE 83; RESP 17; TEMP 96.3; O2SAT 100
[2017-04-08] MEDS: CEFEPIME 2000 MG/NS 100 ML IV SCH ×2 (08:08)
[2017-04-08] MEDS: SODIUM CHLORIDE 1 GRAM TAB PO SCH ×3 (08:10→16:35)
[2017-04-08] MEDS: MULTIVITAMINS/MINERALS THERAPEUTIC TAB PO SCH (08:10)
[2017-04-08] MEDS: FOLIC ACID 1 MG TAB PO SCH (08:10)
[2017-04-08] MEDS: THIAMINE HCL 100 MG TAB PO SCH (08:10)
[2017-04-08] MEDS: DOCUSATE SODIUM 50 MG/SENNA 8.6 MG TAB PO SCH (08:10)
[2017-04-08] MEDS: SODIUM CHLORIDE 0.9% FLUSH 10 ML FLUSH IV FLUSH SCH (08:12)
[2017-04-08] MEDS: ACETAMINOPHEN/HYDROcodone 325 MG/5 MG TAB PO PRN ×3 (08:14→18:57)
[2017-04-08] MEDS ORDERED: COLLAGENASE OINT 30 GM TUBE TOPICAL SCH (09:00)
[2017-04-08] MEDS: LORazepam 1 MG TAB PO PRN (10:33)
[2017-04-08 11:12] LABS: CALCIUM 8.5 MG/DL (8.5-10.1); CREATININE 0.63 MG/DL (0.50-1.00)
[2017-04-08 12:00] VITALS: BP 164/72; PULSE 72; RESP 17; TEMP 96.7; O2SAT 96
[2017-04-08] MEDS: VANCOMYCIN INJ 1,250 MG in SODIUM CHLOR 0.9% 250 ML INJ 250 ML IV SCH (12:45)
[2017-04-08] MEDS ORDERED: POTASSIUM CHLORIDE 20 MEQ CONTROLLED RELEASE TAB PO ONE (14:00)
--- NOTE | 2017-04-08 14:18 | HHI.FF ---
cc: Ashley Leung MD Infusion Therapy Location of Infusion Therapy: Home [facility] Care IV Infusion Order Patient Information Appointment Date: Apr 08, 2017 Patient Weight 66.1 kg Diagnosis: Diagnosis MSSA surgical site infection Deep complicated skin soft tissue infection Coded Allergies: pentazocine (Verified Allergy, Unknown, 04/03/17) Administer Medication Ceftriaxone 2 grams IV q 24 hours Start Treatment: Apr 08, 2017 Stop Treatment: Apr 23, 2017 Additional Information Venous access: Other (Midline) Additional Instructions [x] Peripheral flush and dressing changes per protocol [x] Implanted port and central pipe line walker: * Implanted port: 10 ml Normal Saline followed by 5 ml Heparin 100 units/ml Heparin flush after each use and monthly to maintain. [] May leave port accessed during therapy. [] May leave peripheral site accessed for duration of therapy. [x] If patient has SOB or respiratory distress, check oxygen saturation. If less than 90% or clinical signs of respiratory distress, administer oxygen at 2 L/min. via nasal cannula and notify physician. [x] Anaphylaxis/Reaction orders: * Stop infusion. * Keep IV line open with saline flush. * Notify physician. * Monitor vital signs every 15 minutes until symptoms resolve. * Check Oxygen saturation; Oxygen at 2 L/min. via nasal cannula if less than 90% or clinical signs of respiratory distress. * Administer diphenhydramine (Benadryl) 25 mg IV STAT, (unless patient has received as pre-med). May repeat once, if necessary. * Solu-Cortef 250 mg IVP over 30-60 seconds, use 100 mg vials for each dissolution. * Epinephrine (1mg/1 ml) 0.3 mg subcutaneously or IVP now with any signs of respiratory distress. * Check with physician for new additional pre-med orders if patient is re- challenged or re-treated. [x] May remove PICC line when treatment complete, after confirming with Physician. [x] If the patient is admitted to the hospital, the ED, or transferred via [facility] , complete transfer form including medication reconciliation order sheet. Laboratory Tests Weekly Labs: CBC w/diff, Creatinine, CRP, LFT's (Hepatic function test) Additional Information Please draw weekly labs, fax to numbers provided below, Call with abnormals, change in clinical condition or problems to: Dr.Reba Leung or Dr.T. Sanford or covering ID Physician Follow up appt: Patient to schedule follow up appt with Dr.Reba Leung within 10 days post discharge. Follow up with PCP Follow up with other MDs as planned. Counseling: Counseled about medication side effects Counseled about PICC line care and hand hygiene. Blessing Sanford MD Apr 08, 2017 14:18
[2017-04-08] MEDS ORDERED: CEFT2INJ IV (14:19)
[2017-04-08] MEDS ORDERED: EPIN1INJ21 IV PUSH (14:19)
[2017-04-08] MEDS ORDERED: EPIN1INJ21 SQ (14:19)
[2017-04-08] MEDS ORDERED: SOLU250I IV PUSH (14:19)
--- NOTE | 2017-04-08 14:27 | HHI.DS ---
Discharge Summary Admission Date Apr 04, 2017 at 15:56 Discharge Date: Apr 08, 2017 Admitting Diagnosis Right Toe Cellulitis S/P Bunionectomy (1) S/P bunionectomy ICD Code: Z98.890 - Other specified postprocedural states (2) Cellulitis of great toe, right ICD Code: L03.031 - Cellulitis of right toe Status: Acute (3) Hyponatremia ICD Code: E87.1 - Hypo-osmolality and hyponatremia Procedures Right large toe I&D with tissue samples for culture Brief History - From Admission This is a 66-year-old female with a PMH of Breast CA who was sent to the ER by her Manager Supplier, Dr. Dunn for eval of right foot infection. Per pt, she underwent bunionectomy on 03/25/[address] Dunn, was on prophylactic antibiotics post-op which she completed as instructed. Seen in office yesterday afternoon for follow-up w/ normal exam, however states she developed acute erythema/edema and pain to surgical site last night. Reports associated fever, chills. Pain is sharp, intermittent, 6/10, non-radiating. On arrival, BP 140/66, HR 91, O2 sat 97% on RA, Temp 99.0. CBC essentially unremarkable except for elevated neutrophil count of 78. Na 128. GFR 61. Foot X-ray was soft tissue swelling and degenerative changes. Dr. Conn consulted, evaluated pt in ER, recommendation for admission to continue w/ IV Abx. CBC/BMP: 04/05/17 0830 04/08/17 1022 Significant Findings Laboratory Tests Test 04/07/17 01:16 04/08/17 10:22 Blood Urea Nitrogen 3 MG/DL (7-18) Random Glucose 117 MG/DL (74-106) Sodium Level 135 MEQ/L (136-145) Potassium Level 2.7 MEQ/L (3.5-5.1) PE at Discharge GENERAL: Well-nourished, well-developed patient. HEAD: Normocephalic. EYES: No scleral icterus. No injection or drainage. NECK: Supple, trachea midline. No JVD or lymphadenopathy. CARDIOVASCULAR: Regular rate and rhythm without murmurs, gallops, or rubs. RESPIRATORY: Breath sounds equal bilaterally. No accessory muscle use. GASTROINTESTINAL: Abdomen soft, non-tender, nondistended. EXTREMITIES: Right food in kandy wrap with wound vac in place NEUROLOGICAL: Awake, alert, and oriented x 3. Non-focal. Hospital Course 66F admitted for right large toe cellulitis and abscess on 04/03/17 following bunionectomy on 03/25/17. She had a surgical debridment with tissue samples taken on 04/06/17. She has been on IV antibiotics and responded well to therapy. Wound vac has been in place since surgery. Both infectious disease and podiatry have been involved. Today she is ready for discharge, cleared by both specialists. She will be going home with 2 weeks of IV Ceftriaxone via Midline IV, and will go home with her wound vac until scheduled follow up with podiatry. Pt Condition on Discharge: Good Discharge Disposition: Disch w/ Home Health Serv Discharge Time: <= 30 minutes Discharge Instructions DIET: Follow Instructions for: As Tolerated, No Restrictions Activities you can perform: Weight Bearing as Ruben Heard MD Apr 08, 2017 14:27
--- NOTE | 2017-04-08 14:32 | HHI.IDPN ---
Subjective Subjective Remarks Ms. Fitzgerald is a 66-year-old female with past medical history significant for breast cancer. Patient reportedly had a bunionectomy on March 07, [address] Dunn. Patient presented to the emergency room and she notices increased redness and swelling to the right foot. Patient reports that she completed a course of prophylactic antibiotics. Patient was seen in the office yesterday by her surgeon at which point and there were no signs of infection. She then noticed a rapid spread of redness and swelling and therefore she presented to the emergency department. She reports fevers and chills and states her pain is sharp. An x-ray of the foot was done which shows soft tissue swelling. Dr. Lowry podiatry surgeon has seen the patient and patient is currently nothing by mouth for possible debridement of this site. Infectious disease is consulted for evaluation and management of the surgical site. Overnight events reviewed. Status post irrigation and debridement of the surgical site infection and bone biopsy. Bone biopsy no osteomyelitis. No fevers No rash No diarrhea Tolerating IV antibiotics well Antibiotics Cefepime IV Vanco IV Lines Line sites with no evidence of infection. Past Medical History Reviewed. Allergies: Coded Allergies: pentazocine (Verified Allergy, Unknown, 04/03/17) Objective . Vital Signs Date Time Temp Pulse Resp B/P (MAP) Pulse Ox O2 Delivery O2 Flow Rate FiO2 04/08/17 12:00 96.7 72 17 164/72 (102) 96 04/08/17 08:00 96.3 83 17 154/97 (116) 100 04/08/17 00:00 96.7 70 17 145/73 (97) 96 04/07/17 20:00 96.5 98 17 163/86 (111) 98 . Laboratory Tests Test 04/08/17 10:22 Blood Urea Nitrogen 3 MG/DL Creatinine 0.63 MG/DL Random Glucose 117 MG/DL Calcium Level 8.5 MG/DL Sodium Level 135 MEQ/L Potassium Level 2.7 MEQ/L Chloride Level 100 MEQ/L Carbon Dioxide Level 27.0 MEQ/L Anion Gap 8 MEQ/L Estimat Glomerular Filtration Rate 94 ML/MIN Microbiology Date/Time Source Procedure Growth Status 04/05/17 23:45 Abscess Foot Fungal Smear - Final NO FUNGAL ELEMENTS SEEN. Resulted 04/05/17 23:45 Abscess Foot Fungal Culture Pending Resulted 04/05/17 23:45 Abscess Foot Acid Fast Stain - Final NO ACID FAST BACILLI SEEN Resulted 04/05/17 23:45 Abscess Foot Mycobacterial Culture Pending Resulted 04/05/17 23:45 Abscess Foot Gram Stain - Final Complete 04/05/17 23:45 Wound Culture - Final Staphylococcus Aureus Complete 04/05/17 23:45 Abscess Foot Fungal Smear - Final NO FUNGAL ELEMENTS SEEN. Resulted 04/05/17 23:45 Abscess Foot Fungal Culture Pending Resulted 04/05/17 23:45 Abscess Foot Acid Fast Stain - Final NO ACID FAST BACILLI SEEN Resulted 04/05/17 23:45 Abscess Foot Mycobacterial Culture Pending Resulted 04/05/17 23:45 Abscess Foot Gram Stain - Final Complete 04/05/17 23:45 Wound Culture - Final Staphylococcus Aureus Complete Imaging Last Impressions Chest X-Ray 04/05/17 0000 Signed Impressions: Service Date/Time: Wednesday, April 05, 2017 15:52 - CONCLUSION: The lungs are clear. Right anterior 6th rib fracture. Jefferson Robison MD Foot X-Ray 04/03/17 1855 Signed Impressions: Service Date/Time: Monday, April 03, 2017 19:36 - CONCLUSION: 1. Soft tissue swelling and degenerative changes involving the first metatarsal-phalangeal joint. Devon Leavitt MD Physical Exam GENERAL: This is a well-nourished, well-developed patient, in no apparent distress. SKIN: No rashes, ecchymoses or lesions. Cool and dry. HEAD: Atraumatic. Normocephalic. No temporal or scalp tenderness. EYES: Pupils equal round and reactive. Extraocular motions intact. No scleral icterus. No injection or drainage. ENT: Nose without bleeding, purulent drainage or septal hematoma. Throat without erythema, tonsillar hypertrophy or exudate. Uvula midline. Airway patent. NECK: Trachea midline. Supple, nontender, no meningeal signs. CARDIOVASCULAR: Heart sounds audible. RESPIRATORY: Clear to auscultation. Breath sounds equal bilaterally. No wheezes , rales, or rhonchi. GASTROINTESTINAL: Abdomen soft, non-tender, nondistended. MUSCULOSKELETAL: Right foot with erythema from the prior surgical site infection based on picture shown by . Unhealthy granulation tissue. NEUROLOGICAL: Awake and alert. Cranial nerves II through XII intact. Motor and sensory grossly within normal limits. Five out of 5 muscle strength in all muscle groups. Normal speech. Psych cooperative IV line sites with no evidence of infection. Assessment & Plan Remarks Right foot bunionectomy surgical site infection Staph aureus: Likely MSSA Breast cancer status post lumpectomy Bilateral hip as well as right shoulder status post surgeries hardware in place Recommendations: DC Cefepime IV DC Vancomycin IV Start Ceftriaxone IV Post hospital infusion orders completed. Follow cultures Follow clinically Patient to follow with Dr.Reba Leung: Dr.Reba Leung Blessing Sanford MD Apr 08, 2017 14:32
[2017-04-08] MEDS ORDERED: HYDR-3516 PO (14:55)
[2017-04-08] MEDS ORDERED: cefTRIAXone INJ 2,000 MG in SODIUM CHLORIDE 0.9% INJ 100 ML IV SCH (15:00)
[2017-04-08] MEDS ORDERED: ALPRAZolam 0.5 MG TAB PO ONE (16:15)
[2017-04-09] MEDS ORDERED: PHARMACY ORDERED LAB ONE (23:45)
--- NOTE | 2017-04-12 10:04 | MP ---
cc: STEFAN CASAREZ DPM DATE OF SURGERY: 04/10/2017 SURGEON Stefan Casarez DPM HAND [employer] CUTTER None. PREOPERATIVE DIAGNOSIS Right first metatarsal, right foot infection. POSTOPERATIVE DIAGNOSIS Right foot infection. PROCEDURE Right foot incision and drainage. ANESTHESIA General with local infiltrate of 10 ccs <<0:48>> infiltrated about the right foot. ESTIMATED BLOOD LOSS 5 ccs. HEMOSTASIS None. MATERIALS 3-0 Prolene. INJECTABLES None. COMPLICATIONS None. INDICATION The patient is status post cheilectomy to right first metatarsal, performed by Dr. Arlene Dunn. The patient states she presented to postop visit, at which time there was no redness or problems. The next day after postop visit she noticed increased redness, swelling, infection. The patient proceeded to the ED. The patient was seen in the ED. She received two days of IV antibiotics. There was noted to be no improvement. Decision was made for incision and drainage. The patient tolerated the procedure and anesthesia well. DESCRIPTION OF PROCEDURE The patient was brought to the operating room and placed on the operating table in supine position. Attention was directed to the right side where incision was noted. This incision was using hemostat and <<2:34>> . There was noted to be tissue <<2:37>> to capsule and subcutaneous tissue. Vicryl was removed from site, Nylon was removed from site. 3 liters of copious irrigation was performed, following lavage, soft tissue and bone biopsies were performed. It was decided at the time that closure was not possible and therefore, a wound vac will be applied to site. Two 3-0 Prolene was applied to very distal and proximal aspect of the incision. The patient tolerated the procedure and anesthesia well. She will be transferred back to the floor where she will remain on IV antibiotics and we will await bone cultures. JENIFFER Simental/ADRIANA /9:29 AM /9:34 AM
== END 2017-04-08 19:06 | disposition home health service (06) | DRG 857 ==
LOC: NEPC 18:10 → NEDA 21:50 → NEPGCP 04-04 00:39 → OBSVTOIN 04-04 15:56 → N07A 04-05 16:44 → UNDODISIN 04-05 17:00
PROVIDERS: ADMIT Family Medicine; ATTEND Family Medicine
PROC: 0Y9M0ZX Drainage of Right Foot, Open Approach, Diagnostic (ICD-10-PCS; 2017-04-05)
PROC: 0QBN0ZX Excision of Right Metatarsal, Open Approach, Diagnostic (ICD-10-PCS; principal; 2017-04-05 23:17)
DX: T81.4XXA Infection following a procedure, initial encounter (principal); E87.1 Hypo-osmolality and hyponatremia; N39.0 Urinary tract infection, site not specified; M87.874 Other osteonecrosis, right foot; L03.031 Cellulitis of right toe; E03.9 Hypothyroidism, unspecified; F41.9 Anxiety disorder, unspecified; B95.61 Methicillin susceptible Staphylococcus aureus infection as the cause of diseases classified elsewhere; Z87.891 Personal history of nicotine dependence; Z85.3 Personal history of malignant neoplasm of breast; Z96.643 Presence of artificial hip joint, bilateral; Z96.611 Presence of right artificial shoulder joint
CPT/HCPCS: 36569; 71046; 73630; 76937; 80048; 80053; 80202; 81001; 82948; 83036; 83605; 83735; 84100; 84439; 84443; 85025; 86403; 87015; 87040; 87070; 87086; 87102; 87116; 87147; 87186; 87205; 87206; 88304; 88307; 88311; 94150; 96365; 96368; 96376; G0378; J0692; J0696; J1100; J1885; J2270; J2370; J2405; J2543; J3010; J3370; J7050; J7120

== ENCOUNTER 2017-04-25 18:08 | Emergency (ER) | payer MEDICARE ==
[~2017-04-25] VITALS: Ht 162.6 cm; Wt 65.0 kg
[~2017-04-25 18:08] MED LIST changes: -ADVI200C PO; +ADVI200T17 PO; +CEFT2INJ IV; -CHLO5CAP3 PO; +EPIN1INJ21 IV PUSH; +EPIN1INJ21 SQ; -ESCI20TA PO; +HYDR-3516 PO; -LEVE500T8 PO; -OSCA200T PO; +SOLU250I IV PUSH; -VITA100T2 PO
[2017-04-25 18:19] VITALS: BP 131/64; PULSE 88; RESP 16; TEMP 98.8; O2SAT 97
[2017-04-25] MEDS ORDERED: TRAM50TA PO (18:38)
--- NOTE | 2017-04-25 18:54 | PD ---
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 Patient has midline catheter placed approximately 2 weeks ago for IV antibiotics secondary to infection of her foot postoperatively. She is on IV ciprofloxacin at home. She states this afternoon after infusion she noticed some blood on the bandage, she talked to her home health care nurse who recommended that she come to the emergency department to be seen. Denies any dizziness weakness. states that he is flushing the catheter with heparin and then because the catheter is not drawn back he is flushing it and every time he gives an injection of the ciprofloxacin. He is unsure as the dose of the heparin and I cannot find in the record but the dose to heparinize. She has had no other bleeding no petechiae no purpura. States she is supposed to be on antibiotics for another 2 weeks now. Symptoms mild, nearly resolved, context and associated signs and symptoms as above PFSH Past Medical History Hx Anticoagulant Therapy: Yes (ASPRIN ) Arthritis: No Blood Disorders: No Anxiety: Yes Depression: No Cancer: Yes (RIGHT BREAST) Cardiovascular Problems: No Chemotherapy: No Cerebrovascular Accident: No Endocrine: No Gastrointestinal Disorders: Yes (IBS) Genitourinary: No Headaches: No Immune Disorder: No Implanted Vascular Access Dvce: No Kidney Stones: No Musculoskeletal: Yes Neurologic: Yes (SEIZURES) Psychiatric: Yes Reproductive: No Respiratory: No Migraines: No Radiation Therapy: Yes Renal Failure: No Seizures: Yes (hx but is no longer on medications for it ) Past Surgical History AICD: No Arteriovenous Shunt: No Hysterectomy: Yes Insulin Pump: No Joint Replacement: Yes (Alphonse hip replacement; shoulder replacement) Pacemaker: No Other Surgery: Yes (BILAT HIP & RIGHT SHOULDER REPLACEMENT, HYSTERECTOMY, RIGHT LUMPECTOMY) Social History Alcohol Use: Yes (4-5 beers per day) Tobacco Use: No Substance Use: No Allergies-Medications (Allergen,Severity, Reaction): Coded Allergies: pentazocine (Verified Allergy, Unknown, 04/25/17) Reported Meds & Prescriptions Reported Meds & Active Scripts Active Epinephrine Inj 1 Mg/Ml (1 Ml) Inj 0.3 Mg SQ ONCE PRN Give with any signs of respiratory distress. Epinephrine Inj 1 Mg/Ml (1 Ml) Inj 0.3 Mg IV PUSH ONCE PRN Solu-Cortef Inj (Hydrocortisone Sodium Succinate) 250 Mg/2 Ml Inj 250 Mg IV PUSH ONCE PRN Give over 30-60 seconds. Ceftriaxone Inj (Ceftriaxone Sodium) 2 Gram Inj 2 Gm IV Q24H 14 Days Reported Tramadol (Tramadol HCl) 50 Mg Tab 50 Mg PO Q4H PRN Review of Systems Except as stated in HPI: all other systems reviewed are Neg Physical Exam Narrative GENERAL: Well-nourished, well-developed patient. SKIN: Focused skin assessment warm/dry. There is a midline catheter in the right AC, there is minimal blood staining on the dressing. Patient states she has not changed her dressing since the bleeding started. Catheter does not drop but it flushes easily. Dressing was changed by me. No bleeding was seen while the patient was in the emergency department. HEAD: Normocephalic. EYES: No scleral icterus. No injection or drainage. NECK: Supple, trachea midline. No JVD or lymphadenopathy. CARDIOVASCULAR: Regular rate and rhythm without murmurs, gallops, or rubs. RESPIRATORY: Breath sounds equal bilaterally. No accessory muscle use. GASTROINTESTINAL: Abdomen soft, non-tender, nondistended. MUSCULOSKELETAL: No cyanosis, or edema. BACK: Nontender without obvious deformity. No CVA tenderness. Data Data Last Documented VS Vital Signs Date Time Temp Pulse Resp B/P (MAP) Pulse Ox O2 Delivery O2 Flow Rate FiO2 04/25/17 19:35 78 16 138/72 (94) 100 04/25/17 18:19 98.8 Orders Orders Heparin Central Flush (Heparin Central F (04/25/17 19:00) Ed Discharge Order (04/25/17 18:59) MDM Medical Decision Making Medical Screen Exam Complete: Yes Emergency Medical Condition: Yes Differential Diagnosis Bleeding from catheter, midline catheter thrombosis seems unlikely, coagulopathy highly unlikely Narrative Course Patient was room to the emergency department, she had no swelling of the upper extremity and I highly doubt DVT here. The catheter flushes easily. She is flushing the catheter with heparin. I see no evidence that this catheter is malfunctioning to the point where needs to be removed. Minimal bleeding is to be expected from these type of catheters. Dressing was changed by me. I discussed at length care of the catheter heparin flushes at home and discussed that if there is any concern over the patient getting too much heparin at home that her should call me when he gets home. I discussed that any flush over 500 units should be discussed with me. No indication further workup of this patient at this time. Discussed returning to criteria follow-up with infectious care doctor. Diagnosis Primary Impression: Other complication due to venous access device Med/Other Pt SpecificInfo: Prescription(s) given Disposition: 01 DISCHARGE HOME Condition: Stable Panchito Madrigal MD Apr 25, 2017 18:54
[2017-04-25 19:35] VITALS: BP 138/72
== END 2017-04-25 19:36 | disposition home or self-care (01) ==
LOC: PHED 18:08
DX: T82.898A Other specified complication of vascular prosthetic devices, implants and grafts, initial encounter (principal); Y84.9 Medical procedure, unspecified as the cause of abnormal reaction of the patient, or of later complication, without mention of misadventure at the time of the procedure; F41.9 Anxiety disorder, unspecified; C50.911 Malignant neoplasm of unspecified site of right female breast; K58.9 Irritable bowel syndrome, unspecified
CPT/HCPCS: 99283; J1642